=== PATIENT | female | born 1965 | race Caucasian/White ===

== ENCOUNTER 2022-07-22 14:11 | Emergency (ER) | payer MEDICAID, SELFPAY ==
--- NOTE | ~2022-07-22 | XR_ITS ---
XR chest 2V DATE: 07/22/2022 14:39 INDICATION: Cough, congestion and shortness of breath for one month. Smoker. TECHNIQUE: 2 views COMPARISON: 05/27/2014 PA and lateral chest FINDINGS: Bilateral hyperinflation. No pulmonary infiltrate or consolidation, pleural effusion or pul monary vascular congestion or pneumothorax. No hilar or mediastinal enlargement. Normal heart size. Status post cholecystectomy. Included skeletal structures are unremarkable. IMPRESSION: Bilateral hyperinflation; otherwise no active cardiac pulmonary disease Status post cholecystectomy Reviewed, dictated and finalized at location B. 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
[2022-07-22 14:21] VITALS: BP 107/87; PULSE 84; RESP 20; TEMP 36.4; O2SAT 100
--- NOTE | 2022-07-22 14:23 | ED.URI ---
HPI - URI/Sore Throat General Chief Complaint: Upper Respiratory Infection Stated Complaint: headache, coughing, Time Seen by Provider: 07/22/22 14:23 Source: patient, RN notes reviewed and old records reviewed Mode of arrival: ambulatory Limitations: no limitations History of Present Illness HPI Narrative: 57-year-old female who is a smoker presents to the [facility] with cough, headache and fatigue since getting over COVID 4-6 weeks ago. States she is not getting any better. No treatment prior to arrival except for the inhaler she was prescribed when she had COVID 1st week in June. Denies any fevers. Related Data Home Medications Medication Instructions Recorded Confirmed bupropion HCl 150 mg 24 hr tablet, 150 mg PO DIRECTED 07/22/22 07/22/22 extended release buspirone 5 mg tablet 5 mg PO DAILY 07/22/22 07/22/22 paroxetine HCl 10 mg tablet 10 mg PO DAILY 07/22/22 07/22/22 Allergies Allergy/AdvReac Type Severity Reaction Status Date / Time azithromycin Allergy Unknown Other Verified 07/22/22 14:36 SINGAPOREAN GINSENG Allergy Unknown Other Uncoded 07/22/22 14:36 GUARANA SEED EXTRACT Allergy Unknown Other Uncoded 07/22/22 14:36 PORTUGUESE GINSENG Allergy Unknown Other Uncoded 07/22/22 14:36 SIBERIAN GINSENG ROOT EXTRACT Allergy Unknown Other Uncoded 07/22/22 14:36 Review of Systems Review of Systems: All systems reviewed & are unremarkable except as noted in HPI and below Constitutional: Constitutional: Reports no additional constitutional complaints, Denies chills and Denies fever(s) Eyes: Eyes: Reports no additional eye complaints ENT: Reports system reviewed and no additional complaints, except as documented Cardiovascular: Cardiovascular: Reports no additional cardiovascular complaints Respiratory: Respiratory: Reports as per HPI, Reports cough and Denies dyspnea Gastrointestinal: Gastrointestinal: Reports no additional gastrointestinal complaints Musculoskeletal: Musculoskeletal: Reports no additional musculoskeletal complaints Integumentary/Breasts: Skin/Breast: Reports system reviewed and no additional complaints, except as docu Neurologic: Reports system reviewed and no additional complaints, except as documented Psychiatric: Psychiatric: Reports no additional psychiatric complaints Allergic/Immunologic: Allergic/Immunologic: Reports no additional allergic/immunologic complaints PMFSH Past Medical History Medical History Allergies COPD (chronic obstructive pulmonary disease) Headache Hypotension Irritable bowel syndrome (IBS) Migraine Surgical History Surgical History (Updated 07/22/22 @ 14:51 by Suellen Rizzo APRN) Hx of cholecystectomy Family History Family History Father Alcoholism Mother Hypertension Grandparent Alcoholism Hypertension Social History Social History Smoking status: Current every day smoker Tobacco type: cigarettes Alcohol intake: never Substance use: never Comments At the time of my signature, I reviewed and agree with the nursing past medical, surgical, social, and family history. There is no relevant family history pertinent to the patient complaint. Exam Const: General: healthy appearing, comfortable, no acute distress, well developed, alert and well nourished Nutritional Appearance: well nourished Orientation/consciousness: patient oriented x3 Limitations: no limitations HENMT: Head: normal to inspection Ears: external ears normal, TM's normal bilaterally and EAC's normal Face/Nose/Sinus: Normal external nose present and Nasal discharge present clear bilateral Face and sinus: normal facial exam Mouth: Yes Normal oral and palatal mucosa present, Yes lip normal and Yes moist mucous membranes Throat: posterior oropharynx normal and uvula midline Eyes: General: appearance n
== END 2022-07-22 15:00 | disposition home or self-care (01) ==
PROVIDERS: Emergency Provider Nurse Practitioner
DX: J42 Unspecified chronic bronchitis (principal); J01.40 Acute pansinusitis, unspecified; F17.200 Nicotine dependence, unspecified, uncomplicated
CPT/HCPCS: 71046; 87804; 99213; G0463

== ENCOUNTER 2022-12-19 15:05 | Day surgery (SDC) | payer OTHER, SELFPAY ==
[2022-12-19] VITALS (17 sets, daily range): BP systolic 86–126; BP diastolic 42–84; PULSE 60–87; RESP 15–20; TEMP 36.4–36.6; O2SAT 93–100
--- NOTE | ~2022-12-19 | CT_ITS ---
EXAMINATION: CT abdomen pelvis w con DATE: 12/19/2022 16:09 INDICATION: Right lower quadrant abdominal pain and tenderness TECHNIQUE: Computed tomography (CT) of the abdomen and pelvis was performed with 100 mL Omnipaque-350 intravenous contrast. Automated exposure control and iterative reconstruction technique were employe d. The dose-length product was 305.52 mGy-cm. COMPARISON: 10/06/2016 FINDINGS: Lung bases are clear. Heart size is normal. No pericardial or pleural effusion. Small sliding-type hi atal hernia. Focal hepatic steatosis at the falciform ligament. Cholecystectomy clips at the gallblad gabriela fossa and likely dropped clip in the left hemipelvis. Spleen, pancreas, bilateral adrenal glands and kidneys are normal. Dilated fluid-filled appendix which measures up to 12 mm maximal diameter wit h mucosal hyperemia and mild surrounding inflammatory stranding consistent with acute appendicitis. B owels are otherwise unremarkable with no obstruction. Bladder, uterus and bilateral adnexa are unrema rkable. No abscess or free intraperitoneal gas or fluid. No pathologically enlarged abdominal or pelv ic lymphadenopathy. Mild thoracolumbar dextrocurvature. 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 IMPRESSION: 1. Acute appendicitis. Dr. Melton discussed these findings with Dr. Dr. Mendiola at 4:20 PM. Reviewed, dictated and finalized at location A.
--- NOTE | 2022-12-19 15:30 | ED.ABDPAIN ---
HPI - Abdominal Pain General Chief Complaint: Abdominal Pain Stated Complaint: abd pain Time Seen by Provider: 12/19/22 15:28 Source: patient and family History of Present Illness HPI narrative: 57 years old white female came to the emergency room with abdominal pain mainly right lower quadrant like labor pain. Associated with nausea and vomiting at least 6 times since last night. History of bilateral tubal ligation and gas and cholecystectomy. She denies any fever or chills. Last meal was last night. Related Data Home Medications Medication Instructions Recorded Confirmed bupropion HCl 150 mg 24 hr tablet, 150 mg PO DIRECTED 07/22/22 07/22/22 extended release buspirone 5 mg tablet 5 mg PO DAILY 07/22/22 07/22/22 paroxetine HCl 10 mg tablet 10 mg PO DAILY 07/22/22 07/22/22 Allergies Allergy/AdvReac Type Severity Reaction Status Date / Time azithromycin Allergy Unknown Other Verified 07/22/22 14:36 MALAWIAN GINSENG Allergy Unknown Other Uncoded 07/22/22 14:36 GUARANA SEED EXTRACT Allergy Unknown Other Uncoded 07/22/22 14:36 ROMANSH GINSENG Allergy Unknown Other Uncoded 07/22/22 14:36 SIBERIAN GINSENG ROOT EXTRACT Allergy Unknown Other Uncoded 07/22/22 14:36 Review of Systems Review of Systems: All systems reviewed & are unremarkable except as noted in HPI and below PMFSH Past Medical History Medical History Allergies COPD (chronic obstructive pulmonary disease) Headache Hypotension Irritable bowel syndrome (IBS) Migraine Surgical History Surgical History Hx of cholecystectomy Family History Family History Father Alcoholism Mother Hypertension Grandparent Alcoholism Hypertension Social History Social History Smoking status: Current every day smoker Tobacco type: cigarettes Alcohol intake: never Substance use: never Exam Narrative: General appearance: Well-developed, well-nourished Skin: Normal color Head: Normocephalic, nontraumatic Eyes: Clear conjunctiva ENT: Oropharynx normal, ears normal, nose normal Neck: Supple, nontender Chest and respiratory: Airway patent, no respiratory distress, no accessory muscle use Heart: Regular rate/rhythm Abdomen: Soft, diffuse tenderness mainly right lower quadrant with guarding, no organomegaly, quiet bowel sounds, Vascular: Normal peripheral pulses, normal capillary refill. 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 Patient was notified about the diagnosis of acute appendicitis and the plan for surgery tonight Date: 12/19/22 Time: 16:34 Consultations Consultation #1: Dr. Reis Date: 12/19/22 Time: 16:37 Vital Signs Vital signs: Vital Signs Temperature 36.6 C 12/19/22 15:14 Pulse Rate 87 12/19/22 15:14 Respiratory Rate 16 12/19/22 15:14 Blood Pressure 126/84 12/19/22 15:14 Pulse Oximetry 100 12/19/22 15:14 Oxygen Delivery Room Air 12/19/22 15:14 Temperature 36.6 C 12/19/22 15:14 Pulse Rate 81 12/19/22 15:18 Respiratory Rate 15 12/19/22 15:18 Blood Pressure 126/84 12/19/22 15:18 Pulse Oximetry 98 12/19/22 15:18 Oxygen Delivery Room Air 12/19/22 15:18 MDM - Abdominal Pain MDM Narrative Medical decision making narrative: Patient presents with diffuse abdominal
[2022-12-19 15:41] LABS: Basophils Percent Auto 0.2 % (0.2-1.2); Eosinophils Percent Auto 0.2 % (0-4.4); Hematocrit 42.3 % (37.0-47.0); Hemoglobin 13.8 g/dL (12.0-15.0); Immature Granulocyte Absolute 0.07 K/mm3 (0.00-0.031); Immature Granulocyte Percent A 0.4 % (0-0.5); Lymphocytes Absolute Auto 2.29 K/mm3 (0.9-3.2); Lymphocytes Percent Auto 14.2 % (18.3-44.2); Mean Corpuscular HGB Conc 32.6 g/dl (32-36); Mean Corpuscular Hemoglobin 29.9 pg (26-34); Mean Corpuscular Volume 91.6 fl (80-100); Mean Platelet Volume 9.4 fl (7.4-10.4); Monocytes Absolute Auto 0.9 K/mm3 (0.1-0.6); Monocytes Percent Auto 5.4 % (2.6-8.5); Neutrophils Absolute Auto 12.8 K/mm3 (1.3-6.7); Neutrophils Percent Auto 79.6 % (45.5-73.1); Platelet Count Result 249 k/mm3 (150-375); Red Blood Count 4.62 M/mm3 (4.2-5.4); White Blood Count 16.1 K/mm3 (4.5-10.0)
[2022-12-19 15:45] LABS: Appearance Urine Cloudy (Clear); Bacteria Urine None Seen /hpf; Bilirubin Urine Negative (Negative); Blood Urine 3+ (Negative); Color Urine Yellow (Yellow); Glucose Urine UA Negative (Negative); Ketones Urine 1+ mg/dL (Negative); Leukocyte Esterase Ur Negative LEU/UL (Negative); Nitrate Urine Negative (Negative); Non Pathogenic Casts 0-2; Protein Urine 1+ mg/dL (Negative); RBC Urine >100 /hpf (0-2); Specific Grav Ur 1.014 (1.001-1.035); Squamous Epithelial Cell Urine None seen /hpf (Few); Urobilinogen Urine 0.2 mg/dL (<2.0); WBC Urine 0-5 /hpf; pH Urine 7.5 (5.0-9.0)
[2022-12-19 15:51] LABS: Alanine Aminotransferase 18 U/L (6-35); Albumin Level 4.8 g/dL (3.5-5.1); Alkaline Phosphatase 100 U/L (38-126); Anion Gap 8 mmol/L (8-16); Aspartate Amino Transferase 21 U/L (14-36); Bilirubin,Total 0.8 mg/dL (0.2-1.3); Blood Urea Nitrogen 13 mg/dL (7-17); Calcium 9.4 mg/dL (8.4-10.2); Carbon Dioxide 30 mmol/L (22-30); Chloride 99 mmol/L (98-107); Estimated CRCL calculation 59 ml/min; Estimated Glomerular Filt Rate > 60; Glucose 120 mg/dL (65-110); Lipase 39 U/L (23-300); Potassium 3.9 mmol/L (3.4-5.0); Sodium 137 mmol/L (137-145)
[2022-12-19] MEDS: SODIUM CHLORIDE 0.9% IV 1,000 ML 999 ML IV CONT (15:53)
[2022-12-19] MEDS: MORPHINE SULFATE (*CRX) 4 MG/ML INJ IV PUSH (15:54)
[2022-12-19] MEDS: ONDANSETRON INJ 4 MG/2 ML VIAL IV PUSH (15:54)
[2022-12-19 16:02] LABS: Add Urine Microscopic? YES
[2022-12-19] MEDS: PIPERACILLN/TAZ 3.375GM/NS50ML 3.375 GM/50 ML BAG IVPB (16:37)
[2022-12-19] MEDS: LACTATED RINGERS 1,000 ML 30 ML IV CONT ×2 (17:11→19:29)
--- NOTE | 2022-12-19 17:28 | PC.NURSE ---
Last ordered meds not given due to pt being taken to OR.
--- NOTE | 2022-12-19 17:48 | WPDANESEPPF ---
Anes - Initial Pre Proc Eval Procedure: Operation Date: 12/19/22 18:00 Proposed Procedures p Laparoscopic Appendectomy - Shira Reis MD Date/Time: 12/19/22 17:48 Surgeon: Shira Reis MD Pre Op Diagnosis: abd pain Patient Data Age: 57 Gender: F Height: 1.63 m Weight: 66 kg Last Vital Signs Temp 36.4 C 12/19/22 17:11 Pulse 76 12/19/22 17:11 Resp 20 12/19/22 17:11 BP 124/50 L 12/19/22 17:11 Pulse Ox 98 12/19/22 17:11 O2 Del Method Room Air 12/19/22 17:11 Allergies Allergy/AdvReac Type Severity Reaction Status Date / Time azithromycin Allergy Unknown Other Verified 07/22/22 14:36 LIBYAN GINSENG Allergy Unknown Other Uncoded 07/22/22 14:36 GUARANA SEED EXTRACT Allergy Unknown Other Uncoded 07/22/22 14:36 ENGLISH GINSENG Allergy Unknown Other Uncoded 07/22/22 14:36 SIBERIAN GINSENG ROOT EXTRACT Allergy Unknown Other Uncoded 07/22/22 14:36 Home Medications Medication Instructions Recorded Confirmed Type bupropion HCl 150 mg 24 hr tablet, 150 mg PO DIRECTED 07/22/22 07/22/22 History extended release buspirone 5 mg tablet 5 mg PO DAILY 07/22/22 07/22/22 History doxycycline monohydrate 100 mg 100 mg PO BID #14 tabs 07/22/22 Rx tablet methylprednisolone 4 mg tablets in See Rx Instructions PO .COMPLEX 07/22/22 Rx a dose pack ([employer] Productsrol (Ke)) #21 ea paroxetine HCl 10 mg tablet 10 mg PO DAILY 07/22/22 07/22/22 History Laboratory Tests 12/19/22 12/19/22 12/19/22 15:35 15:35 15:35 WBC 16.1 K/mm3 H K/mm3 (4.5-10.0) RBC 4.62 M/mm3 M/mm3 (4.2-5.4) Hgb 13.8 g/dL g/dL (12.0-15.0) Hct 42.3 % % (37.0-47.0) MCV 91.6 fl fl (80-100) MCH 29.9 pg pg (26-34) MCHC 32.6 g/dl g/dl (32-36) RDW 14.0 % % (11.5-14.5) Plt Count 249 k/mm3 k/mm3 (150-375) MPV 9.4 fl fl (7.4-10.4) Immature Gran % (Auto) 0.4 % % (0-0.5) Neut % (Auto) 79.6 % H % (45.5-73.1) Lymph % (Auto) 14.2 % L % (18.3-44.2) Allen % (Auto) 5.4 % % (2.6-8.5) Eos % (Auto) 0.2 % % (0-4.4) Baso % (Auto) 0.2 % % (0.2-1.2) Lymph # (Auto) 2.29 K/mm3 K/mm3 (0.9-3.2) Allen # (Auto) 0.9 K/mm3 H K/mm3 (0.1-0.6) Eos # (Auto) 0.0 K/mm3 K/mm3 (0-0.3) Baso # (Auto) 0.0 K/mm3 K/mm3 (0.0-0.1) Abs Immat Gran (auto) 0.07 K/mm3 H K/mm3 (0.00-0.031) Absolute Neuts (auto) 12.8 K/mm3 H K/mm3 (1.3-6.7) Absolute Nucleated RBC 0.0 K/mm3 K/mm3 (0.0-0.012) Nucleated RBC % 0.0 % % (0.0-0.2) Sodium 137 mmol/L mmol/L (137-145) Potassium 3.9 mmol/L mmol/L (3.4-5.0) Chloride 99 mmol/L mmol/L (98-107) Carbon Dioxide 30 mmol/L mmol/L (22-30) Anion Gap 8 mmol/L mmol/L (8-16) BUN 13 mg/dL mg/dL (7-17) Creatinine 0.80 mg/dL mg/dL (0.7-1.0) Estim Creat Clear Calc 59 ml/min ml/min Estimated GFR > 60 (59 - ) Glucose 120 mg/dL H mg/dL (65-110) Calcium 9.4 mg/dL mg/dL (8.4-10.2) Total Bilirubin 0.8 mg/dL mg/dL (0.2-1.3) AST 21 U/L U/L (14-36) ALT 18 U/L U/L (6-35) Alkaline Phosphatase 100 U/L U/L (38-126) Total Protein 8.0 g/dL g/dL (6.3-8.2) Albumin 4.8 g/dL g/dL (3.5-5.1) Lipase 39 U/L U/L (23-300) Urine Color Yellow (Yellow) Urine Appearance Cloudy H (Clear) Urine pH 7.5 (5.0-9.0) Ur Specific [place] 1.014 (1.001-1.035) Urine Protein 1+ mg/dL H mg/dL (Negative) Urine Glucose (UA) Negative mg/dL mg/dL (Negative) Urine Ketones 1+ mg/dL H mg/dL (Negative) Ur Blood (Man) 3+ H (Negative) Urine Nitrate Negative (Negative) Urine Bilirubin Negative (Ne
--- NOTE | 2022-12-19 18:30 | PM.IMHP ---
H&P: HPI History of Present Illness Date/Time: 12/19/22 18:30 Chief Complaint: acute appendicitis Narrative: 57 y/o F presenting to ED c/o 1 d h/o sudden onset RLQ pain. Pt reports pain started acutely overnight and has been constant, severe. Pt reports pain is sharp, stabbing. Pt reports assoc nausea, anorexia. Pt denies previous similar episodes. Review of Systems Constitutional: Constitutional: Reports as per HPI, Reports anorexia, Denies chills, Denies fatigue, Denies fever(s), Denies lethargy, Reports poor appetite, Denies weakness, Denies weight gain and Denies weight loss Eyes: Eyes: Reports no additional eye complaints ENT: Reports system reviewed and no additional complaints, except as documented Cardiovascular: Cardiovascular: Reports no additional cardiovascular complaints Respiratory: Respiratory: Reports no additional respiratory complaints Gastrointestinal: Gastrointestinal: Reports as per HPI, Reports abdominal pain, Reports GI cramping and Reports nausea Genitourinary: Genitourinary: Reports no additional female genitourinary complaints Musculoskeletal: Musculoskeletal: Reports no additional musculoskeletal complaints Integumentary/Breasts: Skin/Breast: Reports system reviewed and no additional complaints, except as docu Neurologic: Reports system reviewed and no additional complaints, except as documented Psychiatric: Psychiatric: Reports no additional psychiatric complaints Endocrine: Endocrine: Reports no additional endocrine complaints Hematologic/Lymphatic: Hematologic/Lymphatic: Reports no additional hematologic/lymphatic complaints Allergic/Immunologic: Allergic/Immunologic: Reports no additional allergic/immunologic complaints PMFSH Past Medical History Medical History Allergies COPD (chronic obstructive pulmonary disease) Headache Hypotension Irritable bowel syndrome (IBS) Migraine Surgical History Surgical History Hx of cholecystectomy Family History Family History Father Alcoholism Mother Hypertension Grandparent Alcoholism Hypertension Social History Social History Smoking status: Current every day smoker Tobacco type: cigarettes Alcohol intake: never Substance use: never Meds Home Medications and Allergies Home Medications Medication Instructions Recorded Confirmed Type bupropion HCl 150 mg 24 hr tablet, 150 mg PO DIRECTED 07/22/22 07/22/22 History extended release buspirone 5 mg tablet 5 mg PO DAILY 07/22/22 07/22/22 History doxycycline monohydrate 100 mg 100 mg PO BID #14 tabs 07/22/22 Rx tablet methylprednisolone 4 mg tablets in See Rx Instructions PO .COMPLEX 07/22/22 Rx a dose pack (Medrol (Ke)) #21 ea paroxetine HCl 10 mg tablet 10 mg PO DAILY 07/22/22 07/22/22 History Allergies Allergy/AdvReac Type Severity Reaction Status Date / Time azithromycin Allergy Unknown Other Verified 07/22/22 14:36 BURKINAN GINSENG Allergy Unknown Other Uncoded 07/22/22 14:36 GUARANA SEED EXTRACT Allergy Unknown Other Uncoded 07/22/22 14:36 SLOVENIAN GINSENG Allergy Unknown Other Uncoded 07/22/22 14:36 SIBERIAN GINSENG ROOT EXTRACT Allergy Unknown Other Uncoded 07/22/22 14:36 Vital Signs Vital Signs - 24 hr 12/19/22 15:14 12/19/22 15:18 12/19/22 15:12 Temperature 36.6 C Pulse Rate 87 81 Respiratory Rate 16 15 Blood Pressure 126/84 126/84 126/84 Pulse Oximetry 100 98 98 Oxygen Delivery Room Air Room Air 12/19/22 15:13 12/19/22 15:16 12/19/22 16:40 Temperature Pulse Rate 64 Respiratory Rate 16 Blood Pressure 99/60 L Pulse Oximetry 98 93 99 Oxygen Delivery 12/19/22 16:59 12/19/22 17:11 Temperature 36.4 C Pulse Rate 60 76 Respiratory Rate 16 20 Blood Pressure 99/60 L 124/50 L Pulse Oximetr
--- NOTE | 2022-12-19 18:35 | WPDHPUPDATE1 ---
History and Physical Update Update Date/Time: 12/19/22 18:35 History and Physical has been reviewed, including an updated exam of the patient. There are NO changes in the patient's condition. Risks, benefits, and alternatives have been discussed and questions answered. Patient agrees to proceed with procedure.
[2022-12-19] MEDS: BUPIVACAINE/EPINEPHRINE 0.5% 50 ML VIAL 30 ML INFILTRATE (19:21)
--- NOTE | 2022-12-19 19:22 | W.PM.PROC2 ---
Procedure Note - Detailed Date of Procedure 12/19/22 Pre-op Diagnosis acute appendicitis Post-op Diagnosis Same Procedure Performed laparoscopic appendectomy Surgeon Shira Reis MD Anesthesia General Indications 57 y/o F presenting to ED c severe RLQ abd pain, workup and imaging c/w acute appendicitis Findings acute appendicitis no evidence of perforation Description of Procedure The patient was taken to the operating room and placed in the supine position. After adequate induction of general anesthesia, the patient was prepped and draped in the normal sterile fashion. A time-out was then done to verify the patient's identity, as well as the procedure being performed. I began by making a 5 mm incision in the infraumbilical region, through this a Veress needle was placed in the peritoneal cavity. CO2 gas was then insufflated and after adequate pneumoperitoneum was achieved the Veress needle was removed. Then placed a 5 mm Optiview trocar under direct visualization into the peritoneal cavity. I then insufflated through this trocar site and the endoscope was placed into the trocar. Under direct visualization, placed 2 further 5 mm suprapubic port as well as an additional 12 mm port in the left lower abdomen. At this point identified the cecum, I retracted the cecum both medially and superiorly allowing me to expose the appendix. The appendix was noted to be very dilated and inflamed. The appendix was noted to be very adherent to the right lateral sidewall as well as the ileum. I was able to bluntly dissect the appendix from these adhesions. I then was able to locate the base of the appendix with the cecum. I created a window with the [place] dissector between the appendix itself and the mesoappendix. I then transected the mesoappendix with a white vascular staple load. The Endo-DONALD was then reloaded with a blue staple load and I transected the base of the appendix. There was some bleeding noted at the vascular staple line. Control was attempted with the cautery, however, the area continued to ooze. A second vascular staple load was fired and the bleeding was noted to be controlled. Once the specimen was completely detached, an endo-pouch was placed into the 12 mm port site and the specimen was removed through the endo-pouch. The appendiceal specimen will be sent to pathology for further review. I then copiously irrigated the right lower quadrant. Hemostasis was noted at both staple lines no other pathology was seen in this area. I then moved the camera to the suprapubic port to check our its port of entry. No iatrogenic injury or other pathology was noted in the upper abdomen. I then closed the 12 mm port site with a Gray code and 0 Vicryl suture under direct visualization. At this point, the abdomen was desufflated and all ports were removed. All port sites were closed with 4 Monocryl subcuticular suture. Dermabond was placed on all wounds. The patient tolerated the procedure well and was extubated in the operating room postop. He will be sent to the recovery room in stable condition. Estimated Blood Loss 50 Drains No Packing No Pathology Yes Complications No immediate complications Condition Stable Disposition PACU [facility] Billing Surgery - Charge Forward: Surgery Billing
[2022-12-19] MEDS: fentaNYL CITRATE INJ (*CRX) 100 MCG/2 ML VIAL 25 MCG IV PUSH ×3 (19:58→20:11)
--- NOTE | 2022-12-19 20:36 | SUR.PHASEI ---
Addendum entered by Tracey Velázquez RN 12/19/22 20:39: will give 500ml iv bolus of LR that is already infusing. Original Note: 2030: Kira PIERRE notified of patient having continued hypotension. New orders received.
[2022-12-19] MEDS: oxyCODONE HCL (*CRX) 5 MG TAB IR PO (20:58)
== END 2022-12-19 21:55 | disposition home or self-care (01) ==
LOC: ANHED 16:38 → ANHSURGERY 17:01
PROVIDERS: Emergency Medicine; Emergency Provider Emergency Medicine; Visit Provider Surgery
PROC: 0DTJ4ZZ Resection of Appendix, Percutaneous Endoscopic Approach (ICD-10-PCS; CPT 44970; principal; 2022-12-19 18:00)
DX: K35.80 Unspecified acute appendicitis (principal); F17.210 Nicotine dependence, cigarettes, uncomplicated
CPT/HCPCS: 44970; 36415; 74177; 80053; 81001; 83690; 85025; 88304; A9270; J0330; J2250; J2270; J2405; J2543; J2704; J3010; J7030; J7120; Q9967

== ENCOUNTER 2023-04-16 13:05 | Emergency (ER) | payer OTHER, SELFPAY ==
--- NOTE | 2023-04-16 13:07 | ED.BACK ---
HPI - Back Pain/Injury General Chief Complaint: Back Pain/Injury Stated Complaint: back pain Time Seen by Provider: 04/16/23 13:35 Source: patient and RN notes reviewed Mode of arrival: ambulatory Limitations: no limitations History of Present Illness HPI Narrative: 58-year-old female presents with concern for acute low back pain bilaterally. Reports 40 minutes prior to arrival she was at the grocery store pushing a shopping cart when she slipped causing her legs to spread apart and having immediate back pain. She reports pain is worse when she is sitting or changing positions, it is best when she is standing. She denies loss of bowel or bladder function, perianal anesthesia, weakness in any extremity. She reports occasional pain shooting down her right leg MD elicited complaint: back pain Related Data Home Medications Medication Instructions Recorded Confirmed hydroxyzine HCl 25 mg tablet mg 04/16/23 midodrine 5 mg tablet mg 04/16/23 olanzapine 2.5 mg tablet mg 04/16/23 omeprazole 40 mg capsule,delayed mg 04/16/23 release Allergies Allergy/AdvReac Type Severity Reaction Status Date / Time azithromycin Allergy Unknown Other Verified 04/16/23 13:25 SLOVENIAN GINSENG Allergy Unknown Other Uncoded 04/16/23 13:25 GUARANA SEED EXTRACT Allergy Unknown Other Uncoded 04/16/23 13:25 SERBIAN GINSENG Allergy Unknown Other Uncoded 04/16/23 13:25 SIBERIAN GINSENG ROOT EXTRACT Allergy Unknown Other Uncoded 04/16/23 13:25 Review of Systems Review of Systems: CONSTITUTIONAL: Denies malaise, chills, sweats, or fever. CARDIOVASCULAR: Denies chest pain, palpitations, or edema. RESPIRATORY: Denies cough or dyspnea. GASTROINTESTINAL: Denies abdominal pain, nausea, vomiting, diarrhea, loss of bowel function GENITOURINARY: Denies dysuria, hematuria, frequency, loss of bladder function. SKIN: Denies rash or itching. MUSCULOSKELETAL: Reports low back pain NEUROLOGIC: Denies numbness, weakness, or headache. All systems reviewed & are unremarkable except as noted in HPI and below PMFSH Past Medical History Medical History Allergies COPD (chronic obstructive pulmonary disease) Headache Hypotension Irritable bowel syndrome (IBS) Migraine Surgical History Surgical History Hx of cholecystectomy Family History Family History Father Alcoholism Mother Hypertension Grandparent Alcoholism Hypertension Social History Social History Smoking status: Current every day smoker Tobacco type: cigarettes Alcohol intake: never Substance use: never Comments At time of signature, agree with nursing past medical, surgical, social and family history. There is no relevant family history pertinent to the presenting complaint Exam Narrative: GENERAL: Well-appearing, well-nourished, and in no acute distress. HEAD: Normocephalic, atraumatic. EYES: PERRLA and EOMI. NECK: Supple. No lymphadenopathy. CHEST: Clear to auscultation. No respiratory distress. HEART: Regular rate and rhythm. Distal pulses palpable and equal, cap refill <3 seconds ABDOMEN: Soft, nondistended, normal active bowel sounds, no palpable or pulsatile masses. Right lower quadrant tenderness MUSCULOSKELETAL: Normal range of motion and strength in all extremities; 5/5 strength with hip flexion and extension, dorsiflexion and extension, knee flexion and extension, plantar flexion and extension. Normal sensation in dermatomal distributions with sensitivity to light touch and pain. Low midline back tenderness to palpation. Right paraspinal tenderness. Transfers from sitting to standing. SKIN: Warm, dry, no rash. No ecchymosis, erythema, open wounds to back. NEURO: No focal deficits. Alert and oriented x3. Reflexes intact. Normal gait. PSYCH: Normal moo
[2023-04-16 13:18] VITALS: BP 135/65; PULSE 89; RESP 16; TEMP 36.2; O2SAT 99
== END 2023-04-16 13:50 | disposition home or self-care (01) ==
PROVIDERS: Emergency Provider Nurse Practitioner; PCP Internal Medicine
DX: M54.50 Low back pain, unspecified (principal); F17.210 Nicotine dependence, cigarettes, uncomplicated; J44.9 Chronic obstructive pulmonary disease, unspecified
CPT/HCPCS: 99213; G0463

== ENCOUNTER 2023-04-21 10:10 | Outpatient (CLI) | payer OTHER, SELFPAY ==
--- NOTE | ~2023-04-21 | XR_ITS ---
EXAMINATION: XR lumbar spine 2-3V DATE: 04/21/2023 10:39 INDICATION: Low back pain TECHNIQUE: Anteroposterior and lateral views of the lumbar spine, and cone-down lateral view of the l umbosacral junction were obtained. COMPARISON: 02/19/2010 FINDINGS: There are 2 mm of anterolisthesis of L4 on L5. The vertebral body heights an intervertebral disc spaces are maintained. There is no fracture. Small degenerative osteophytes project from the an terior endplates of multiple vertebral bodies. There is mild facet joint osteoarthritis of the lower lumbar spine. Surgical clips in the right upper quadrant are likely from prior cholecystectomy. A mod erate volume of colonic stool is present. IMPRESSION: 1. Mild lumbar spondylosis without acute findings. Reviewed, dictated and finalized at location B.
--- NOTE | ~2023-04-21 | XR_ITS ---
EXAMINATION: XR foot RT min 3V DATE: 04/21/2023 10:39 INDICATION: Right foot pain TECHNIQUE: Dorsoplantar, lateral, and 2 oblique views of the right foot were obtained. COMPARISON: None. FINDINGS: No fracture, dislocation, or subluxation. The bones, soft tissues, and joint spaces are nor mal. IMPRESSION: 1. No acute osseous abnormality. Reviewed, dictated and finalized at location B.
--- NOTE | ~2023-04-21 | XR_ITS ---
EXAMINATION: XR ankle RT min 3V INDICATION: Right foot pain TECHNIQUE: Four views of the right ankle are obtained COMPARISON: None available FINDINGS: No fracture, dislocation, or subluxation. The bones, soft tissues, and joint spaces are nor mal. IMPRESSION: 1. No acute osseous abnormality. Reviewed, dictated and finalized at location B.
== END 2023-04-21 10:11 | disposition home or self-care (01) ==
PROVIDERS: PCP Internal Medicine; Visit Provider Internal Medicine
DX: M79.671 Pain in right foot (principal); M54.50 Low back pain, unspecified; M47.896 Other spondylosis, lumbar region
CPT/HCPCS: 72100; 73610; 73630

== ENCOUNTER 2023-06-15 11:31 | Emergency (ER) | payer OTHER, SELFPAY ==
[2023-06-15 11:44] VITALS: BP 127/89; PULSE 93; RESP 18; TEMP 37; O2SAT 98
--- NOTE | 2023-06-15 13:19 | ED.UPPEXIN ---
HPI - Extremity Injury (Upper) General Chief Complaint: Extremity Injury, Upper Stated Complaint: R AXILLA PAIN S/P FALL ONTO CHAIRBACK Time Seen by Provider: 06/15/23 12:05 Source: patient and RN notes reviewed Mode of arrival: ambulatory Limitations: no limitations History of Present Illness HPI narrative: THis is a 58 year old female who presents for evaluation of right axilla pain. She reports last week she accidentally fell hitting her right axilla and breast on a high chair. She reports she was evaluated at an Urgent care 5 days ago for her pain. She reports having xray of right ribs and axilla and she was told no bony injury. She reports she is having worsening pain that is not improving with tylenol. She reports heat does help with her pain. She describes pain as spasms. She does not take any blood thinning medication. She denies significant shortness of breath. Related Data Home Medications Medication Instructions Recorded Confirmed hydroxyzine HCl 25 mg tablet mg 04/16/23 midodrine 5 mg tablet mg 04/16/23 olanzapine 2.5 mg tablet mg 04/16/23 omeprazole 40 mg capsule,delayed mg 04/16/23 release Allergies Allergy/AdvReac Type Severity Reaction Status Date / Time azithromycin Allergy Unknown Other Verified 04/16/23 13:25 CAMEROONIAN GINSENG Allergy Unknown Other Uncoded 04/16/23 13:25 GUARANA SEED EXTRACT Allergy Unknown Other Uncoded 04/16/23 13:25 KISWAHILI GINSENG Allergy Unknown Other Uncoded 04/16/23 13:25 SIBERIAN GINSENG ROOT EXTRACT Allergy Unknown Other Uncoded 04/16/23 13:25 Review of Systems Review of Systems: All systems reviewed & are unremarkable except as noted in HPI and below PMFSH Past Medical History Medical History Allergies COPD (chronic obstructive pulmonary disease) Headache Hypotension Irritable bowel syndrome (IBS) Migraine Surgical History Surgical History Hx of cholecystectomy Family History Family History Father Alcoholism Mother Hypertension Grandparent Alcoholism Hypertension Social History Social History Smoking status: Current every day smoker Tobacco type: cigarettes Alcohol intake: never Substance use: never Exam Const: General: no acute distress and alert Nutritional Appearance: well nourished Orientation/consciousness: patient oriented x3 Limitations: no limitations HENMT: Head: normal to inspection Face and sinus: normal facial exam Mouth: Yes Normal oral and palatal mucosa present, Yes lip normal and Yes moist mucous membranes Eyes: EOM: EOMs intact bilaterally Chest: Other: right lateral breast and chest wall tenderness, soft, no bruising, no erythema, no swelling. PAtient has full range of motion to right arm Resp: Effort & Inspection: normal respiratory effort Auscultation: clear to auscultation bilaterally Cardio: Rate: regular rate Rhythm: regular rhythm Skin: General skin exam: normal color Rashes: no rashes Wounds: no wounds Neuro: General: patient oriented x3, moves all extremities and CN's II-XI intact bilaterally Psych: Mental Status: mental status grossly normal Affect: normal affect Attitude: cooperative Course Reevaluation(s) Reevaluation #1: I Discussed with patient that she will be given flexeril and ibuprofen for pain. I offered imaging of her chest and axilla. She declines. She states she wants to go home and she will return if things do not improve. Her pain does seem to be more muscular. Date: 06/15/23 Time: 13:23 Vital Signs Vital signs: Vital Signs Temperature 98.6 F 06/15/23 11:44 Pulse Rate 93 06/15/23 11:44 Respiratory Rate 18 06/15/23 11:44 Blood Pressure 127/89 06/15/23 11:44 Pulse Oximetry 98 06/15/23 11:44 Oxygen Delivery Room Air 06/15/23 1
[2023-06-15] MEDS: CYCLOBENZAPRINE HCL 10 MG TABLET PO (13:20)
[2023-06-15] MEDS: IBUPROFEN 600 MG TABLET PO (13:20)
== END 2023-06-15 13:35 | disposition home or self-care (01) ==
PROVIDERS: Emergency Provider General Practice
DX: M79.621 Pain in right upper arm (principal); J44.9 Chronic obstructive pulmonary disease, unspecified; K58.9 Irritable bowel syndrome, unspecified; Z90.49 Acquired absence of other specified parts of digestive tract; W01.190A Fall on same level from slipping, tripping and stumbling with subsequent striking against furniture, initial encounter
CPT/HCPCS: 99283; A9270

== ENCOUNTER 2023-09-24 10:31 | Emergency (ER) | payer OTHER, SELFPAY ==
[2023-09-24 10:44] VITALS: BP 116/87; PULSE 98; RESP 20; TEMP 37.1; O2SAT 99
--- NOTE | 2023-09-24 11:39 | ED.GENADULT ---
HPI - General Adult General Chief complaint: Upper Respiratory Infection Stated complaint: Sinus/SOB Source: patient Mode of arrival: ambulatory Limitations: no limitations History of Present Illness HPI narrative: Patient presents for evaluation of respiratory symptoms since yesterday. Symptoms include nonproductive cough, shortness of breath pleuritic chest pain. She also his fevers and chills. Denies any nausea, vomiting, and diarrhea. No recent sick contacts to her knowledge. She has an underlying hx of COPD. She is current everyday smoker but has cut down on use. She has taken nyquil and mucinex for her symptoms. Related Data Home Medications Medication Instructions Recorded Confirmed albuterol sulfate 90 mcg/actuation inhalation 09/24/23 aerosol inhaler budesonide-formoterol HFA 80 inhalation 09/24/23 mcg-4.5 mcg/actuation aerosol inhaler (Symbicort) hydroxyzine HCl 10 mg tablet mg 09/24/23 hydroxyzine pamoate 25 mg capsule mg 09/24/23 olanzapine 5 mg tablet 5 mg PO DIRECTED 09/24/23 09/24/23 prazosin 2 mg capsule mg 09/24/23 Allergies Allergy/AdvReac Type Severity Reaction Status Date / Time azithromycin Allergy Unknown Other Verified 09/24/23 10:33 NAURUAN GINSENG Allergy Unknown Other Uncoded 09/24/23 10:33 GUARANA SEED EXTRACT Allergy Unknown Other Uncoded 09/24/23 10:33 AMHARIC GINSENG Allergy Unknown Other Uncoded 09/24/23 10:33 SIBERIAN GINSENG ROOT EXTRACT Allergy Unknown Other Uncoded 09/24/23 10:33 Review of Systems Review of Systems: CONSTITUTIONAL: reports fever and chills. EYES: Denies visual changes, redness, or discharge. ENT: Reports sinus congestion.Denies rhinorrhea, sore throat, or otalgia. CARDIOVASCULAR: Denies palpitations, or edema. RESPIRATORY: Reports nonproductive cough, shortness of breath and pleuritic chest pain. GASTROINTESTINAL: Denies abdominal pain, nausea, vomiting, or diarrhea. GENITOURINARY: Denies dysuria or hematuria. SKIN: Denies rash or itching. MUSCULOSKELETAL: Denies back pain, joint pain, or myalgia. NEUROLOGIC: Denies headache, numbness, dizziness, or weakness. PSYCHIATRIC: Denies anxiety or depression. [facility] Past Medical History Medical History Allergies COPD (chronic obstructive pulmonary disease) Headache Hypotension Irritable bowel syndrome (IBS) Migraine Surgical History Surgical History Hx of cholecystectomy Family History Family History Father Alcoholism Mother Hypertension Grandparent Alcoholism Hypertension Social History Social History Smoking status: Current every day smoker Tobacco type: cigarettes Alcohol intake: never Substance use: never Living arrangements: with family Gender identity (if verbalized by the patient): Female Spiritual care concerns: No Exam Narrative: GENERAL: Well-appearing, well-nourished, and in no acute distress. HEAD: Normocephalic, atraumatic. EYES: PERRLA and EOMI. ENT: Nares clear, no rhinorrhea or epistaxis. Mucous membranes moist. Oropharynx without tonsillar hypertrophy exudate or other lesions. Bilateral TMs pearly hinojosa nonbulging NECK: Supple. No adenopathy or masses. No carotid bruits or JVD CHEST: Clear to auscultation. No respiratory distress. No wheezes rales or rhonchi HEART: Regular rate and rhythm. No murmur heard. Normal peripheral pulses. ABDOMEN: Soft, nontender, nondistended, normal active bowel sounds. EXTREMITIES: Normal range of motion. No edema. SKIN: Warm, dry, no rash. NEURO: No focal deficits. Alert and oriented x3. PSYCH: Normal mood and affect. Course Course Emergency Course: This is a 58-year-old female who presented for evaluation of respiratory symptoms. Home COVID was ne
== END 2023-09-24 12:05 | disposition home or self-care (01) ==
PROVIDERS: Emergency Provider Nurse Practitioner
DX: J06.9 Acute upper respiratory infection, unspecified (principal); F17.210 Nicotine dependence, cigarettes, uncomplicated; J44.9 Chronic obstructive pulmonary disease, unspecified
CPT/HCPCS: 87081; 87804; 87880; 99213; G0463

== ENCOUNTER 2023-09-29 08:21 | Emergency (ER) | payer OTHER, SELFPAY ==
[2023-09-29] VITALS (9 sets, daily range): BP systolic 109–138; BP diastolic 54–114; PULSE 82–103; RESP 13–26; TEMP 36.9; O2SAT 94–98
--- NOTE | ~2023-09-29 | XR_ITS ---
EXAMINATION: XR chest 2V 09/29/2023 08:47 INDICATION: Shortness of breath and cough PROCEDURE: 2 view chest COMPARISON: Comparison to multiple prior studies sequentially, with oldest reviewed study dated 09/2012. FINDINGS: The lungs are clear. The cardiomediastinal silhouette is within normal limits. There are no pleural effusions. There is no pneumothorax suspected. IMPRESSION: 1: NO ACUTE CARDIOPULMONARY DISEASE. Reviewed, dictated and finalized at location B. [employer]
--- NOTE | ~2023-09-29 | CT_ITS ---
EXAMINATION: CTA chest PE protocol DATE: 09/29/2023 09:21 STRIP PICKER INDICATION: Shortness of breath. Anxiety. TECHNIQUE: Computed tomographic angiography (CTA) of the chest was performed with 100 mL Omnipaque-35 0 intravenous contrast. The dose-length product was 218.54 mGy-cm. Maximum intensity projection 3D-re constructions of the aorta and other arteries were constructed by the technologist on a separate work station. Automated exposure control and iterative reconstruction technique were employed. COMPARISON: None. FINDINGS: Study is technically adequate without evidence for pulmonary embolism. No significant pleur al or pericardial effusion. No thoracic lymphadenopathy. There is hiatal hernia. No evidence for aort ic aneurysm. The upper abdomen is unremarkable. There are cholecystectomy clips. No focal airspace co nsolidation. There is mild emphysema. No endobronchial lesions. No pneumothorax. There are calcified granulomas of the right upper lobe. IMPRESSION: 1. No acute cardiopulmonary disease. No evidence for pulmonary embolism. Reviewed, dictated and finalized at location B. P PICKER
--- NOTE | 2023-09-29 08:24 | ECG_ITS ---
Measurements Intervals [place] Rate: 74 P: 36 IA: 129 QRS: 73 QRSD: 88 T: 62 QT: 360 QTc: 400 Interpretive Statements SINUS RHYTHM BASELINE ARTIFACT- V1 NORMAL ECG NO PREVIOUS ECG AVAILABLE FOR COMPARISON Electronically Signed On 09-29-2023 8:57:55 IT APPLICATION DEVELOPMENT MANAGER by Tanvir Castillo D.O.
--- NOTE | 2023-09-29 08:25 | PC.NURSE ---
Pt arrived to triage loudly moaning, states she cannot breathe. Pt taken to room via wheelchair.
[2023-09-29 08:43] LABS: Basophils Percent Auto 0.2 % (0.2-1.2); Eosinophils Percent Auto 0.1 % (0-4.4); Hemoglobin 12.3 g/dL (12.0-15.0); Immature Granulocyte Absolute 0.03 K/mm3 (0.00-0.031); Immature Granulocyte Percent A 0.3 % (0-0.5); Lymphocytes Absolute Auto 1.65 K/mm3 (0.9-3.2); Lymphocytes Percent Auto 17.5 % (18.3-44.2); Mean Corpuscular HGB Conc 31.5 g/dl (32-36); Mean Corpuscular Hemoglobin 28.9 pg (26-34); Mean Corpuscular Volume 91.8 fl (80-100); Mean Platelet Volume 9.4 fl (7.4-10.4); Monocytes Absolute Auto 0.6 K/mm3 (0.1-0.6); Monocytes Percent Auto 6.1 % (2.6-8.5); Neutrophils Absolute Auto 7.1 K/mm3 (1.3-6.7); Neutrophils Percent Auto 75.8 % (45.5-73.1); Platelet Count Result 252 k/mm3 (150-375); Red Blood Count 4.25 M/mm3 (4.2-5.4); Red Cell Distribution Width 14.1 % (11.5-14.5); White Blood Count 9.4 K/mm3 (4.5-10.0)
[2023-09-29 08:55] LABS: Alanine Aminotransferase 29 U/L (6-35); Albumin Level 4.1 g/dL (3.5-5.1); Alkaline Phosphatase 105 U/L (38-126); Anion Gap 11 mmol/L (8-16); Aspartate Amino Transferase 41 U/L (14-36); Bilirubin,Total 0.4 mg/dL (0.2-1.3); Blood Urea Nitrogen 14 mg/dL (7-17); Calcium 8.8 mg/dL (8.4-10.2); Carbon Dioxide 25 mmol/L (22-30); Chloride 104 mmol/L (98-107); Estimated CRCL calculation 52 ml/min; Estimated Glomerular Filt Rate > 60; Glucose 160 mg/dL (65-110); Potassium 3.4 mmol/L (3.4-5.0); Sodium 140 mmol/L (137-145)
--- NOTE | 2023-09-29 08:57 | ED.SOB ---
HPI - SOB/Dyspnea General Chief Complaint: Shortness of Breath/Dyspnea Stated Complaint: I can't breathe Time Seen by Provider: 09/29/23 08:41 Source: patient Mode of arrival: ambulatory Limitations: no limitations History of Present Illness HPI Narrative: Suellen is a 58-year-old female patient presenting to the ER today with complaints of shortness of breath times 5-6 days. She was seen 5 days ago in the urgent care and diagnosed with viral URI/viral syndrome. She was placed on albuterol inhaler, 50 mg prednisone daily for 5 days, and Tessalon Perles. She reports that her symptoms have not improved. Currently rates her shortness breath a 7/10. History of COPD and anxiety. States that she was coughing up some yellow phlegm 1st 2 days but after that she has not been coughing up any sputum. She denies any fever or chills. Related Data Home Medications Medication Instructions Recorded Confirmed albuterol sulfate 90 mcg/actuation inhalation 09/24/23 aerosol inhaler budesonide-formoterol HFA 80 inhalation 09/24/23 mcg-4.5 mcg/actuation aerosol inhaler (Symbicort) hydroxyzine HCl 10 mg tablet mg 09/24/23 hydroxyzine pamoate 25 mg capsule mg 09/24/23 olanzapine 5 mg tablet 5 mg PO DIRECTED 09/24/23 09/24/23 prazosin 2 mg capsule mg 09/24/23 Allergies Allergy/AdvReac Type Severity Reaction Status Date / Time azithromycin Allergy Unknown Other Verified 09/29/23 08:32 GAMBIAN GINSENG Allergy Unknown Other Uncoded 09/29/23 08:32 GUARANA SEED EXTRACT Allergy Unknown Other Uncoded 09/29/23 08:32 KAZAKH GINSENG Allergy Unknown Other Uncoded 09/29/23 08:32 SIBERIAN GINSENG ROOT EXTRACT Allergy Unknown Other Uncoded 09/29/23 08:32 Review of Systems Review of Systems: Pertinent positives per HPI. Patient denies any fever, chills, rash, headache, visual changes, dizziness, runny nose, sore throat, chest pain, palpitations, nausea, vomiting, diarrhea, constipation, abdominal pain, or any urinary issues. PMFSH Past Medical History Medical History Allergies COPD (chronic obstructive pulmonary disease) Headache Hypotension Irritable bowel syndrome (IBS) Migraine Surgical History Surgical History Hx of cholecystectomy Family History Family History Father Alcoholism Mother Hypertension Grandparent Alcoholism Hypertension Social History Social History Smoking status: Current every day smoker Tobacco type: cigarettes Alcohol intake: never Substance use: never Living arrangements: with family Gender identity (if verbalized by the patient): Female Spiritual care concerns: No Comments At the time of my signature, I reviewed and agree with the nursing past medical, surgical, social, and family history. There is no relevant family history pertinent to the patient complaint. Exam Narrative: General: Well-developed, well nourished, anxious appearing Head: Normocephalic, atraumatic Eyes: Pupils equally round and reactive to light bilaterally, EOM intact, sclera and conjunctive clear, no discharge, lids normal Ears: TMs intact and clear, ear canals clear, no drainage, grossly hearing normal. Nose: Nares patent, no discharge, no inflammation, no sinus tenderness. Mouth: Oropharynx without lesions or masses, good dentition, MMM. Neck: Supple, trachea midline, no enlargement of anterior or posterior cervical nodes, no thyroid masses or goiter palpable. Cardio: Regular rate and rhythm, s1 and s2 normal, no murmur appreciated. Resp: Clear to auscultation bilaterally anteriorly and posteriorly, no rhonchi, rales, wheezing or rubs, SpO2 94-97% on room air, is able to speak in full sentences. Course Course Emergency Course: Portions of this yamila
[2023-09-29] MEDS: LORazepam INJ (*CRX) 2 MG/ML VIAL 1 MG IV PUSH (09:22)
[2023-09-29 09:45] LABS: INR 0.9
[2023-09-29 09:54] LABS: NT Pro B Type Natriuretic Pept 104 pg/mL (19.9-100); Troponin I < 0.012 ng/mL (0.000-0.034)
[2023-09-29 10:21] LABS: Influenza A QL RT-PCR Negative (Negative); Influenza B QL RT-PCR Positive (Negative); RSV RNA, RT-PCR Negative (Negative); SARS-CoV-2 RNA PCR Negative (Negative)
== END 2023-09-29 11:54 | disposition home or self-care (01) ==
PROVIDERS: Emergency Medicine; Emergency Provider Nurse Practitioner Family
DX: J10.1 Influenza due to other identified influenza virus with other respiratory manifestations (principal); R06.02 Shortness of breath; Z20.822 Contact with and (suspected) exposure to COVID-19; J44.9 Chronic obstructive pulmonary disease, unspecified; K58.9 Irritable bowel syndrome, unspecified; Z90.49 Acquired absence of other specified parts of digestive tract; F17.210 Nicotine dependence, cigarettes, uncomplicated
CPT/HCPCS: 36415; 71046; 71275; 80053; 83880; 84484; 85025; 85610; 85730; 87637; 93005; 96374; 99284; J2060; Q9967

== ENCOUNTER 2023-11-14 12:52 | Emergency (ER) | payer OTHER, SELFPAY ==
--- NOTE | ~2023-11-14 | XR_ITS ---
EXAMINATION: XR wrist LT min 3V DATE: 11/14/2023 13:20 INDICATION: Left wrist pain. Fall. TECHNIQUE: 4 views of left wrist were obtained. COMPARISON: None. FINDINGS: Bone alignment is normal. No fracture. There is mild osteoarthritis of first carpometacarpa l joint. IMPRESSION: 1. Mild osteoarthritis of first carpometacarpal joint. Reviewed, dictated and finalized at location A.
--- NOTE | ~2023-11-14 | XR_ITS ---
EXAMINATION: XR finger 3rd LT min 2V DATE: 11/14/2023 13:19 INDICATION: Left hand third digit pain and swelling. TECHNIQUE: 4 views of left hand third digit were obtained. COMPARISON: None. FINDINGS: There is an avulsion fracture of palmar base of third middle phalanx with 1 mm displacement . There is mild osteoarthritis of third proximal and distal interphalangeal joints. IMPRESSION: 1. Avulsion fracture of palmar base of third middle phalanx. Reviewed, dictated and finalized at location A.
[2023-11-14 12:55] VITALS: BP 134/77; PULSE 98; RESP 18; TEMP 36.6; O2SAT 100
[2023-11-14 12:57] VITALS: BP 116/77; PULSE 78; RESP 16; TEMP 36.4; O2SAT 100
--- NOTE | 2023-11-14 13:48 | ED.UPPEXIN ---
HPI - Extremity Injury (Upper) General Chief Complaint: Extremity Injury, Upper Stated Complaint: left middle finger injury last week Time Seen by Provider: 11/14/23 13:04 Source: patient Mode of arrival: ambulatory Limitations: no limitations History of Present Illness HPI narrative: Patient is a 58-year-old female who presents the ED with report of left 3rd digit pain. Patient reports she injured her left 3rd digit last week in which the finger bent backwards almost all the way to her hand. She states her finger appear dislocated at that time and she was able to reduce the finger herself. She has since had pain and swelling to her PIP joint of that digit. She has a finger splint at home that she has been wearing at times but states it does not fit appropriately. Denies numbness or tingling. Denies any other injuries. Related Data Home Medications Medication Instructions Recorded Confirmed albuterol sulfate 90 mcg/actuation inhalation 09/24/23 aerosol inhaler budesonide-formoterol HFA 80 inhalation 09/24/23 mcg-4.5 mcg/actuation aerosol inhaler (Symbicort) hydroxyzine HCl 10 mg tablet mg 09/24/23 hydroxyzine pamoate 25 mg capsule mg 09/24/23 olanzapine 5 mg tablet 5 mg PO DIRECTED 09/24/23 09/24/23 prazosin 2 mg capsule mg 09/24/23 Allergies Allergy/AdvReac Type Severity Reaction Status Date / Time azithromycin Allergy Unknown Other Verified 11/14/23 13:01 SLOVENIAN GINSENG Allergy Unknown Other Uncoded 11/14/23 13:01 GUARANA SEED EXTRACT Allergy Unknown Other Uncoded 11/14/23 13:01 OCCITAN GINSENG Allergy Unknown Other Uncoded 11/14/23 13:01 SIBERIAN GINSENG ROOT EXTRACT Allergy Unknown Other Uncoded 11/14/23 13:01 Review of Systems Review of Systems: CONSTITUTIONAL: Denies fever, chills, or sweats. MUSCULOSKELETAL: See HPI. NEUROLOGIC: Denies numbness, or weakness. All systems reviewed & are unremarkable except as noted in HPI and below PMFSH Past Medical History Medical History Allergies COPD (chronic obstructive pulmonary disease) Headache Hypotension Irritable bowel syndrome (IBS) Migraine Surgical History Surgical History Hx of cholecystectomy Family History Family History Father Alcoholism Mother Hypertension Grandparent Alcoholism Hypertension Social History Social History Smoking status: Current every day smoker Tobacco type: cigarettes Alcohol intake: never Substance use: never Living arrangements: with family Gender identity (if verbalized by the patient): Female Spiritual care concerns: No Exam Narrative: GENERAL: Well appearing, well-nourished, non-toxic, in no acute distress. HEAD: Normocephalic, atraumatic. RESPIRATORY: Airway patent, respirations nonlabored. CARDIOVASCULAR: Regular rate and rhythm. Radial pulses easily palpable. MUSCULOSKELETAL: Moves all extremities. No gross deformities. Mild swelling/ecchymosis/tenderness to palpation to PIP joint of left 3rd digit. Slight limited range of motion due to swelling. Sensation intact. Capillary refill intact to finger. SKIN: Warm, dry, normal color. NEURO: A&O X3. Speech clear. PSYCHIATRIC: Appropriate mood and affect. Normal interaction. Course Vital Signs Vital signs: Vital Signs Temperature 98 F 11/14/23 12:55 Pulse Rate 98 11/14/23 12:55 Respiratory Rate 18 11/14/23 12:55 Blood Pressure 134/77 11/14/23 12:55 Pulse Oximetry 100 11/14/23 12:55 Oxygen Delivery Room Air 11/14/23 12:55 Temperature 97.6 F 11/14/23 14:14 Pulse Rate 69 11/14/23 14:14 Respiratory Rate 14 11/14/23 14:14 Blood Pressure 119/66 11/14/23 14:14 Pulse Oximetry 100 11/14/23 14:14 Oxygen Delivery Room Air 11/14/23 12:57
[2023-11-14 14:14] VITALS: BP 119/66; PULSE 69; RESP 14; TEMP 36.4; O2SAT 100
== END 2023-11-14 14:16 | disposition home or self-care (01) ==
PROVIDERS: Emergency Provider Physician Assistant
DX: S62.623A Displaced fracture of middle phalanx of left middle finger, initial encounter for closed fracture (principal); J44.9 Chronic obstructive pulmonary disease, unspecified; K58.9 Irritable bowel syndrome, unspecified; F17.210 Nicotine dependence, cigarettes, uncomplicated; Z90.49 Acquired absence of other specified parts of digestive tract; M18.9 Osteoarthritis of first carpometacarpal joint, unspecified; X50.9XXA Other and unspecified overexertion or strenuous movements or postures, initial encounter
CPT/HCPCS: 29130; 73110; 73140; 99284

== ENCOUNTER 2024-10-17 13:02 | Emergency (ER) | payer OTHER, SELFPAY ==
[2024-10-17 13:18] VITALS: BP 110/63; PULSE 84; RESP 15; TEMP 36.2; O2SAT 99
--- NOTE | 2024-10-17 13:40 | ED.URI ---
HPI - URI/Sore Throat General Chief Complaint: Upper Respiratory Infection Stated Complaint: cough,runny nose,sores in mouth/throat Time Seen by Provider: 10/17/24 13:40 Source: patient, RN notes reviewed and old records reviewed Mode of arrival: ambulatory Limitations: no limitations History of Present Illness HPI Narrative: Patient presents accompanied by her . She is tearful E complaining of cough, runny nose, sore throat. She reports that she saw her primary care provider on October 07. At that visit she was diagnosed with thrush, and has prescriptions with her that she received that day. She got Augmentin, prednisone, nystatin and Jessica. She is not taking any of these medications as prescribed although she did become alert. She is tearful, complaints are vague. Has been does a lot of the speaking for her. She does report that when she went saw her primary care provider on October 07, she got a shot that was supposed to help her but did not. She does not know what the shot was Related Data Home Medications ?Medication ?Instructions ?Recorded ?Confirmed ?Last Taken ?Type albuterol sulfate 90 mcg/actuation 2 puff inhalation Q6-8H PRN 09/24/23 10/17/24 Unknown History aerosol inhaler shortness of breath or wheezing budesonide-formoterol HFA 80 2 puff inhalation Q12H 09/24/23 10/17/24 Unknown History mcg-4.5 mcg/actuation aerosol inhaler (Symbicort) hydroxyzine pamoate 25 mg capsule 25 mg PO Q8H PRN anxiety 09/24/23 10/17/24 Unknown History olanzapine 5 mg tablet 5 mg PO DIRECTED 09/24/23 10/17/24 Unknown History prazosin 2 mg capsule 2 mg PO QPM 09/24/23 10/17/24 Unknown History Allergies Allergy/AdvReac Type Severity Reaction Status Date / Time azithromycin Allergy Unknown Other Verified 10/17/24 13:05 IRANIAN GINSENG Allergy Unknown Other Uncoded 10/17/24 13:05 GUARANA SEED EXTRACT Allergy Unknown Other Uncoded 10/17/24 13:05 WELSH GINSENG Allergy Unknown Other Uncoded 10/17/24 13:05 SIBERIAN GINSENG ROOT EXTRACT Allergy Unknown Other Uncoded 10/17/24 13:05 Review of Systems Review of Systems: All systems reviewed & are unremarkable except as noted in HPI and below Constitutional: Constitutional: Reports no additional constitutional complaints ENT: Reports system reviewed and no additional complaints, except as documented and Reports as per HPI Cardiovascular: Cardiovascular: Reports no additional cardiovascular complaints Respiratory: Respiratory: Reports no additional respiratory complaints Gastrointestinal: Gastrointestinal: Reports no additional gastrointestinal complaints [facility] Past Medical History Medical History Irritable bowel syndrome (IBS) Hypotension Migraine Headache COPD (chronic obstructive pulmonary disease) Allergies Surgical History Surgical History Hx of cholecystectomy Family History Family History Father Alcoholism Mother Hypertension Grandparent Alcoholism Hypertension Social History Social History Smoking status: Current every day smoker Tobacco type: cigarettes Alcohol intake: never Substance use: never Living arrangements: with family Gender identity (if verbalized by the patient): Female Spiritual care concerns: No Comments At the time of my signature, I reviewed and agree with the nursing past medical, surgical, social, and family history. There is no relevant family history pertinent to the patient complaint. Exam Const: General: no acute distress, alert, awake and anxious Orientation/consciousness: oriented to person, oriented to place and oriented to time HENMT: Head: normal to inspection Ears: TM's normal bilaterally Mouth: Yes moist mucous membranes Throat: posterior oropharynx abnormal other (Small shallow sore base of tongue, left side) Resp: Effort & Inspection: normal respiratory effort and able to speak in complete sentences Auscultation: clear to auscultation bilaterally, no crackles, no rales, no rhonchi and no wheezes Cardio: Palpation: normal PMI Rate: regular rate Rhythm: regular rhythm Heart sounds: S1 normal heart sound present and S2 normal heart sound present Neuro: General: oriented to person, oriented to place and oriented to time Cranial nerves: Yes CN's II-XII intact bilaterally Psych: Appearance: grossly normal Thought process: Normal thought process present Insight: Good insight present (Psych) Judgement: Good judgement present (Psych) Course Course Level of Care: Express Care Visit Vital Signs Vital signs: Vital Signs Temperature 97.1 F L 10/17/24 13:18 Pulse Rate 84 10/17/24 13:18 Respiratory Rate 15 10/17/24 13:18 Blood Pressure 110/63 10/17/24 13:18 Pulse Oximetry 99 10/17/24 13:18 Oxygen Delivery Room Air 10/17/24 13:18 Temperature 97.1 F L 10/17/24 13:18 Pulse Rate 84 10/17/24 13:18 Respiratory Rate 15 10/17/24 13:18 Blood Pressure 110/63 10/17/24 13:18 Pulse Oximetry 99 10/17/24 13:18 Oxygen Delivery Room Air 10/17/24 13:18 Reviewed MDM - URI/Sore Throat MDM Narrative Medical decision making narrative: Negative COVID, negative flu, negative strep. Symptoms appear to be viral in origin. Long discussion had with patient regarding supportive care measures. She is advised to stop prednisone advised to stop Augmentin. She agrees to do so. She is advised follow with primary care provider. Emergency department for new or worse symptoms. Discharge instructions reviewed with patient, as well as provided in writing per nursing staff. The instructions also include specific and strict return/GO TO THE ER as well as f/u information. All questions have been answered, and the patient deny any further questions with discharge and discharge plan. Some parts of this dictation were generated by voice recognition software and may contain typographical and/or grammatical inaccuracies. Differential Diagnosis Differential diagnosis: Likely upper respiratory infection, otitis media and viral infection Medical Records Attestation: I reviewed the patient's medical records. Lab Data Attestation: I reviewed the patient's lab results. Discharge Plan Discharge Clinical Impression: Acute viral syndrome Patient Disposition: Home, Self-Care Condition: Stable Instructions: Antibiotic Form, Cold Symptoms (ED) Additional Instructions: Continue nystatin. Continue Jessica. Discontinue prednisone. Discontinue Augmentin. Follow-up with primary care provider without fail. Emergency department for new or worse symptoms Patient Language: Danish Prescriptions: No Action olanzapine 5 mg tablet 5 mg PO DIRECTED prazosin 2 mg capsule 2 mg PO QPM hydroxyzine pamoate 25 mg capsule 25 mg PO Q8H PRN (Reason: anxiety) albuterol sulfate 90 mcg/actuation HFA aerosol inhaler 2 puff INHALATION Q6-8H PRN (Reason: shortness of breath or wheezing) budesonide-formoterol [Symbicort] 80-4.5 mcg/actuation HFA aerosol inhaler 2 puff INHALATION Q12H prednisone 50 mg tablet 50 mg PO DAILY Qty: 5 0RF benzonatate 100 mg capsule 100 mg PO TID PRN (Reason: cough) Qty: 30 0RF albuterol sulfate [Ventolin HFA] 90 mcg/actuation HFA aerosol inhaler 2 puff inhalation QID PRN (Reason: shortness of breath or wheezing) Qty: 8.5 0RF codeine-guaifenesin [G Tussin AC] 10-100 mg/5 mL liquid 10 ml PO Q4-6H PRN (Reason: cough) 3 Days Qty: 120 0RF Follow-up/Referrals: Macy,Bereket Fontenot MD [Primary Care Provider] - 3 Days Time of Disposition: 14:20
[2024-10-17 14:28] LABS: EDCOVIDSCREEN Negative (Negative); EDINFLUASCREEN Negative (Negative); EDINFLUBSCREEN Negative (Negative); EDSTREPNEGPOS1 Negative (Negative)
== END 2024-10-17 14:34 | disposition home or self-care (01) ==
PROVIDERS: Emergency Provider Nurse Practitioner Family; PCP Internal Medicine
DX: B34.9 Viral infection, unspecified (principal); J44.9 Chronic obstructive pulmonary disease, unspecified; F17.210 Nicotine dependence, cigarettes, uncomplicated; Z20.822 Contact with and (suspected) exposure to COVID-19
CPT/HCPCS: 87081; 87426; 87804; 87880; 99213; G0463

== ENCOUNTER 2025-01-20 03:43 | Emergency (ER) | payer OTHER, SELFPAY ==
--- NOTE | ~2025-01-20 | XR_ITS ---
EXAMINATION: XR knee RT 3V DATE: 01/20/2025 04:06 INDICATION: Right knee injury TECHNIQUE: Anteroposterior, oblique and crosstable lateral views of the right knee were obtained COMPARISON: None. FINDINGS: Alignment is normal. No fracture. No joint effusion/layering lipohemarthrosis. Prominent prepatellar soft tissue swelling with increased density which in setting of trauma would be most consistent with a large hematoma. IMPRESSION: 1. Large prepatellar hematoma. No joint effusion or acute osseous abnormality. Reviewed, dictated and finalized at location A.
[2025-01-20 03:45] VITALS: BP 125/79; PULSE 110; RESP 17; TEMP 36.8; O2SAT 98
--- OUTSIDE RECORDS SUMMARY | 2025-01-20 03:45 | XMS_ITS | Clinical Summary ---
Author Organization [facility] Address [address] [place] [address] Care Team Providers Care Showcase Trimmer Name Role Phone Diamond Sanchez MD Primary Care Provider [phone] Allergies Active Allergy Reactions Criticality Noted Date Comments Gabapentin Swelling 02/28/2022 Medications midodrine 5 MG tablet Take 1 tablet (5 mg total) by mouth 2 (two) times a day. Active OLANZapine (ZYPREXA) 5 MG tablet Take 1 tablet (5 mg total) by mouth daily. 3 Active hydrOXYzine (ATARAX) 10 MG tabletIndicatio ns:Other insomnia Take 1 tablet (10 mg total) by mouth 2 (two) times daily. 90 tablet 1 3 Active hydrOXYzine (VISTARIL) 25 MG capsule 1 - 2 capsules up to 3 times a day as needed for anxiety Orally Once a day for 30 days 3 Active prazosin (MINIPRESS) 1 MG capsule nightly at bedtime. 3 Active omeprazole (PRILOSEC) 40 MG capsule Take 1 capsule (40 mg total) by mouth daily. Active OLANZapine (ZYPREXA) 10 MG tablet 4 Active predniSONE 50 MG tablet Take 1 tablet (50 mg total) by mouth daily. 4 Active benzonatate (TESSALON) 100 MG capsule Take 1 capsule (100 mg total) by mouth 3 (three) times daily as needed. FOR COUGH 4 Active albuterol sulfate HFA 108 (90 Base) MCG/ACT inhaler INHALE 2 PUFFS BY MOUTH FOUR TIMES DAILY NEEDED FOR SHORTNESS OF BREATH OR WHEEZING 4 Active prazosin (MINIPRESS) 2 MG capsule 4 Active Active Problems Problem Noted Date Diagnosed Date Other insomnia 02/28/2022 Memory loss 02/28/2022 COPD (chronic obstructive pu lmonary disease) ([facility]) Asthma ([facility]) Moderate episode of recurrent major depressive d isorder Seizure-like activity ([facility]) Concussion with loss of consciousness Generalized anxiety disorder Bipolar 1 disorder ([facility]) Hypotension Family History Medical History Relation Comments Asthma Father Cancer Father stomach Cancer Mother lung Hypertension Mother Cancer Paternal Grandmother bladder Colon Cancer Paternal Grandmother Relation Status Comments Father Mother Paternal Grandmother Social History Tobacco Use Types Packs/Day Years Used Date Smoking Tobacco: Every Day Cigarettes 1 38 Started: 1981; Last attempted to quit: 2019 Smokeless Tobacco: Never Tobacco Cessation:Ready to Q uit: No; Counseling Given: Yes Comments:smokes with company 1 or 2 Alcohol Use Standard Drinks/Week Comments Not Currently 0 (1 standard drink = 0.6 oz pur e alcohol) PHQ-2 Answer Date Recorded Patient Health Questionnaire-2 Score 4 07/03/2023 Comments No Sex and Gender Information Value Date Recorded Sex Assigned at Not on file Legal Sex Female 6:40 PM CDT Gender Identity Not on file Sexual Orientation Not on file Last Filed Vital Signs Vital Sign Reading Time Taken Comments Blood Pressure 136/70 08/15/2023 12:20 PM CLINICAL MICROBIOLOGIST Pulse 94 08/15/2023 12:20 PM CLINICAL MICROBIOLOGIST Temperature 36.7 C (98.1 F) 07/03/2023 11:17 AM CDT Respiratory Rate 16 07/03/2023 11:17 AM CDT Oxygen Saturation 98% 08/15/2023 12:20 PM CLINICAL MICROBIOLOGIST Inhaled Oxygen Concentration - - Weight 68 kg (150 lb) 08/15/2023 12:20 PM CLINICAL MICROBIOLOGIST Height 162.6 cm (5' 4 ) 08/15/2023 12:20 PM CLINICAL MICROBIOLOGIST Body Mass Index 25.75 08/15/2023 12:20 PM CLINICAL MICROBIOLOGIST Plan of Treatment Health Maintenance Due Date Last Done Comments Cervical Cancer Screening Pa p Smear (Age 30 to 64) Every 3 Years 1966 Colorectal Cancer Screening Colonoscopy (10 Years) 1966 DTaP, Tdap and Td Vaccines ( 1 - Tdap) 1985 Hepatitis B Vaccines (1 of 3 - 19+ 3-dose series) 1985 Pneumococcal Vaccine: 50+ Ye ars (1 of 2 - PCV) 1985 Mammogram Screening 2006 Zoster Vaccines (1 of 2) 01/06/2016 COVID-19 Vaccine (1 - 2023-2 5 season) 2024 Annual Physical 07/03/2024 07/03/2023 PHQ-2 (Physician [place]) 09/04/2024 07/03/2023 Cervical Cancer Screening Pa p with HPV Testing (Age 30 to 64) Every 5 Years 09/04/2025 Cervical Cancer Screening with HPV 09/04/2025 Hepatitis C Completed 02/28/2022 Meningococcal B Vaccine Aged Out No l onger eligible based on patient's age to complete this topic Meningococcal Vaccine Aged Out No zena magnus eligible based on patient's age to complete this topic RSV Immunizations Under 20 Months Aged Out No longer eligible based on patient's age to complete this topic Procedures Procedure Name Priority Date/Time Associated Diagnosis Comments HEPATITIS C ANTIBODY Routine 02/28/2022 12:31 PM CDT Encounter for hepatitis C virus screening test for high risk patient from Last 3 Months or Most Recently Relevant to Health Maintenance Results * (ABNORMAL) HEPATITIS C ANTIBODY (02/28/2022 12:31 PM CDT) HEPATITIS C AB REACTIVE(A ) NON-REACTI VE 02/28/2022 3:39 PM CDT [facility] Comment: NOTE: A POSITIVE RESULT WILL BE CONFIRMED BY THE HEP C RNA, QUANT, PCR TEST. 02/28/2022 12:3 1 PM CDT us Maverick Cabrera DO LABORATORY Final Result [facility] [address] [place] [address], [place] [phone] from Last 3 Months or Most Recently Relevant to Health Maintenance Insurance [employer] Care Teams Showcase Trimmer Relationship Specialty Start Date End Date Diamond Sanchez MD [address] [place] [address] PCP - General FAMILY PRACTICE 09/30/22
--- OUTSIDE RECORDS SUMMARY | 2025-01-20 03:45 | XMS_ITS | Continuity of Care Document ---
Author Organization [facility] Address [address] [place] [address] [place] [address] Phone Care Team Providers Care Pot Maker Name Role Phone Henrry Manning MD Unavailable Unavailable Allergies, Adverse Reactions, Alerts Substance Reaction Status Criticality No Known Allergies Active No Inform ation Procedures Procedure Date OFFICE/OUTPATIENT VISIT, EST OFFICE/OUTPATIENT VISIT, EST OFFICE/OUTPATIENT VISIT, EST PREV VISIT, EST, AGE 40-64 OFFICE/OUTPATIENT VISIT, EST OFFICE/OUTPATIENT VISIT, EST OFFICE/OUTPATIENT VISIT, EST OFFICE/OUTPATIENT VISIT, EST OFFICE/OUTPATIENT VISIT, EST OFFICE/OUTPATIENT VISIT, EST OFFICE/OUTPATIENT VISIT, EST OFFICE/OUTPATIENT VISIT, EST OFFICE/OUTPATIENT VISIT, EST OFFICE/OUTPATIENT VISIT, EST OFFICE/OUTPATIENT VISIT, EST PREV VISIT, EST, AGE 40-64 OFFICE/OUTPATIENT VISIT, EST OFFICE/OUTPATIENT VISIT, EST OFFICE/OUTPATIENT VISIT, EST OFFICE/OUTPATIENT VISIT, EST OFFICE/OUTPATIENT VISIT, EST OFFICE/OUTPATIENT VISIT, EST OFFICE/OUTPATIENT VISIT, EST OFFICE/OUTPATIENT VISIT, EST OFFICE/OUTPATIENT VISIT, EST OFFICE/OUTPATIENT VISIT, EST OFFICE/OUTPATIENT VISIT, EST OFFICE/OUTPATIENT VISIT, EST PREV VISIT, EST, AGE 40-64 OFFICE/OUTPATIENT VISIT, EST OFFICE/OUTPATIENT VISIT, EST OFFICE/OUTPATIENT VISIT, EST OFFICE/OUTPATIENT VISIT, EST OFFICE/OUTPATIENT VISIT, EST OFFICE/OUTPATIENT VISIT, EST OFFICE/OUTPATIENT VISIT, EST OFFICE/OUTPATIENT VISIT, EST OFFICE/OUTPATIENT VISIT, EST OFFICE/OUTPATIENT VISIT, EST OFFICE/OUTPATIENT VISIT, EST OFFICE/OUTPATIENT VISIT, EST OFFICE/OUTPATIENT VISIT, EST OFFICE/OUTPATIENT VISIT, EST OFFICE/OUTPATIENT VISIT, EST PREV VISIT, NEW, AGE 40-64 OFFICE/OUTPATIENT VISIT, NEW Advance Directives Directive Yes / No Effective Date File Name No Information Encounters Encounter Description Practice Location Reason(s) For Visit Diagnoses Date Provider Providers Copied on Encounter OFFICE/OUTPA TIENT VISIT, [facility], [address], [place], [address], tel:[phone] [facility] HLP (chief complaint) A1c (chief complaint) LBP (chief complaint) anxiety1 (chief complaint) HyperlipidemiaHyper glycemiaLow back painGeneralized anxiety disorder 6-201 6 Nigel Sales. [address] [place], [address] , [place]. tel:[phone] Referring Provider: Henrry Manning [address], [place], [address]. tel:[phone] OFFICE/OUTPA TIENT VISIT, [facility], [address], [place], [address], tel:[phone] [facility] anxiety1 (chief complaint) back pain1 (chief complaint) HLP (chief complaint) sick (chief complaint) Mixed hyperlipidemiaHyper glycemiaLow back painGeneralized Anxiety Disorder 6 Nigel Sales. [address], [place], [place], [address] , [place]. tel:[phone] Referring Provider: Dionne Cotton [address], [place], [place], [address]. tel:[phone] OFFICE/OUTPA TIENT VISIT, EST [facility], [address], [place], [place], [address], [place] tel:[phone] [facility] back pain1 (chief complaint) anxiety1 (chief complaint) hot flush (chief complaint) Menopausal disorderLow back painGeneralized anxiety disorder 6 Nig[address] Sales. [address], [place], [place], [address] , [place]. [phone] Referring Provider: Dionne Cotton [address], [place], [place], [address]. tel:[phone] PREV VISIT, EST, AGE 40-64 [facility], [address], [place], [place], [address], [place] tel:[phone] [facility] Medicine PHysical (chief complaint) Encounter for general adult medical exam w abnormal findingsGeneralized anxiety disorderMixed hyperlipidemiaHyper glycemia 6 Nig[address] Sales. [address], [place], [place], [address] , [place]. tel:[phone] Referring Provider: Dionne [address], [place], [place], [address]. tel:[phone] OFFICE/OUTPA TIENT VISIT, EST [facility], [address], [place], [place], [address], [place] tel:[phone] [facility] back pain1 (chief complaint) anxiety1 (chief complaint) Chronic pain syndromeGeneralized anxiety disorder 6 Nig[address] Sales. [address], [place], [place], [address] , [place]. tel:[phone] Referring Provider: Dionne Cotton [address], [place], [place], [address]. tel:[phone] OFFICE/OUTPA TIENT VISIT, [facility], [address], [place], [place], [address], [place] tel:[phone] [facility] glucose (chief complaint) HLP (chief complaint) hematuria (chief complaint) bakc pain1 (chief complaint) anxiety1 (chief complaint) Mixed hyperlipidemiaHyper glycemiaHematuriaCh ronic pain syndrome 6 Nigel Sales. [address], [place], [place], [address] , [place]. tel:[phone] Referring Provider: Dionne Cotton [address], [place], [place], [address]. tel:[phone] OFFICE/OUTPA TIENT VISIT, [facility], [address], [place], [place], [address], [place] tel:[phone] [facility] back pain1 (chief complaint) anxiety1 (chief complaint) Chronic pain syndromeGeneralized Anxiety Disorder 6 Nig[address] Sales. [address], [place], [place], [address] , [place]. tel:[phone] Referring Provider: Dionne Cotton [address], [place], [place], [address]. tel:[phone] OFFICE/OUTPA TIENT VISIT, [facility], [address], [place], [place], [address], [place] tel:[phone] [facility] back pain1 (chief complaint) anxiety1 (chief complaint) Chronic pain syndromeGeneralized Anxiety Disorder 5 Nigel Sales. [address], [place], [address] , [place]. tel:[phone] Referring Provider: Dionne [address], [place], [place], [address]. tel:[phone] OFFICE/OUTPA TIENT VISIT, [facility], [address], [place], [address], [place] tel:[phone] [facility] back pain1 (chief complaint) anxiety1 (chief complaint) HLP1 (chief complaint) vasomotor symptoms (chief complaint) Other spondylosis, lumbar regionGeneralized anxiety disorderMixed hyperlipidemiaPerim enopausal disorder 5 Nigel Sales. [address], [place], [address] , [place]. tel:[phone] Referring Provider: Dionne [address], [place], [place], [address]. tel:[phone] OFFICE/OUTPA TIENT VISIT, [facility], [address], [place], [place], [address], [place] tel:[phone] [facility] anxiety (chief complaint) Anxiety (chief complaint) back pain (chief complaint) Back pain (chief complaint) LumbagoDepressive disorder, not elsewhere classified 5 Nigel Sales. [address], [place], [place], [address] , [place]. tel:[phone] Referring Provider: Dionne [address], [place], [place], [address]. tel:[phone] OFFICE/OUTPA TIENT VISIT, [facility], [address], [place], [place], [address], [place] tel:[phone] [facility] weight gain (chief complaint) Anxiety (chief complaint) back pain (chief complaint) Abnormal weight gainLumbagoGenerali zed Anxiety Disorder 5 Nigel Sales. [address], [place], [address] , [place]. tel:[phone] Referring Provider: Dionne Cotton [address], [place], [place], [address]. tel:[phone] OFFICE/OUTPA TIENT VISIT, [facility], [address], [place], [place], [address], [place] tel:[phone] [facility] right shoulder pain (chief complaint) back pain (chief complaint) HTN (chief complaint) Anxiety (chief complaint) Blood pressure elevatedShoulder painLumbagoGenerali zed anxiety disorder 5 Nigel Sales. [address], [place], [place], [address] , [place]. [phone] Referring Provider: Dionne [address], [place], [place], [address]. tel:[phone] OFFICE/OUTPA TIENT VISIT, [facility], [address], [place], [place], [address], [place] tel:[phone] [facility] axiety (chief complaint) back pain (chief complaint) LumbagoGeneralized anxiety disorder 5 Nig[address] Sales. [address], [place], [place], [address] , [place]. [phone] Referring Provider: Dionne [address], [place], [place], [address]. tel:[phone] OFFICE/OUTPA TIENT VISIT, [facility], [address], [place], [place], [address], [place] tel:[phone] [facility] anxiety (chief complaint) back pain (chief complaint) abrasion (chief complaint) Abrasion or friction burn of other, multiple, and unspecified sites, without mention of infectionGeneralize d anxiety disorderLumbagoOpio id type dependence, unspecified use 5 Nigel Hernandez [address], [place], [address] , [place]. tel:[phone] Referring Provider: Dionne [address], [place], [place], [address]. tel:[phone] PREV VISIT, EST, AGE 40-64 [facility], [address], [place], [place], [address], [place] tel:[phone] [facility] PHysical (chief complaint) Routine Medical ExamOther and unspecified diseases of upper respiratory tractLumbagoGeneral ized anxiety disorderRoutine Medical Exam 5 Nigel Sales. [address], [place], [place], [address] , [place]. tel:[phone] Referring Provider: Dionne [address], [place], [place], [address]. tel:[phone] OFFICE/OUTPA TIENT VISIT, [facility], [address], [place], [place], [address], [place] tel:[phone] [facility] back pain (chief complaint) Anxiety (chief complaint) cough (chief complaint) LumbagoBronchitis, AcuteGeneralized anxiety disorderTobacco Abuse 5 Nigel Sales. [address], [place], [place], [address] , [place]. [phone] Referring Provider: Dionne Cotton [address], [place], [place], [address]. tel:[phone] OFFICE/OUTPA TIENT VISIT, [facility], [address], [place], [place], [address], [place] tel:[phone] [facility] back pain (chief complaint) hematuria (chief complaint) anxiety (chief complaint) cold symptoms (chief complaint) Bronchitis, AcuteHEMATURIA NOSGeneralized anxiety disorderLumbago 5 Nigel Sales. [address], [place], [place], [address] , [place]. [phone] Referring Provider: Dionne [address], [place], [address]. tel:[phone] OFFICE/OUTPA TIENT VISIT, [facility], [address], [place], [place], [address], [place] tel:[phone] [facility] back pain (chief complaint) anxiety (chief complaint) LumbagoGeneralized anxiety disorder 4 Nigel Sales. [address], [place], [place], [address] , [place]. tel:[phone] Referring Provider: Dionne [address], [place], [place], [address]. tel:[phone] OFFICE/OUTPA TIENT VISIT, [facility], [address], [place], [place], [address], [place] [phone] [facility] hematuria (chief complaint) lumbago (chief complaint) Anxiety (chief complaint) HLP (chief complaint) HEMATURIA NOSLumbagoOther and unspecified hyperlipidemiaGener alized anxiety disorder 4 Nigel Sales. [address], [place], [place], [address] , [place]. tel:[phone] Referring Provider: Henrry Manning, [address], [place], [place], [address]. tel:[phone] OFFICE/OUTPA TIENT VISIT, [facility], [address], [place], [address], [place] [phone] [facility] UTI (chief complaint) HLP (chief complaint) back pain (chief complaint) anxiety (chief complaint) Urinary Tract InfectionOther and unspecified hyperlipidemiaLumba goGeneralized anxiety disorder 0 4 Nigel Sales. [address], [place], [place], [address] , [place]. tel:[phone] Referring Provider: Henrry Manning [address], [place], [place], [address]. tel:[phone] OFFICE/OUTPA TIENT VISIT, [facility], [address], [place], [place], [address], [place] tel:[phone] [facility] back pain (chief complaint) anxiety (chief complaint) bruise (chief complaint) Spontaneous ecchymosesLumbagoGe neralized anxiety disorder 4 Nigel Sales. [address], [place], [address] , [place]. [phone] Referring Provider: Henrry Manning [address], [place], [place], [address]. tel:[phone] OFFICE/OUTPA TIENT VISIT, [facility], [address], [place], [place], [address], [place] tel:[phone] [facility] back pain (chief complaint) anxiety (chief complaint) Weight issue (chief complaint) hematuria (chief complaint) HEMATURIA NOSGeneralized anxiety disorderLumbago 4 Nigel Sales. [address], [place], [place], [address] , [place]. [phone] Referring Provider: Henrry Manning, [address], [place], [place], [address]. tel:[phone] OFFICE/OUTPA TIENT VISIT, [facility], [address], [place], [place], [address], [place] tel:[phone] [facility] weight loss (chief complaint) back pain (chief complaint) anxiety (chief complaint) lip sore (chief complaint) Loss of weightLumbagoGenera lized anxiety disorderHerpes simplex with other specified complications 4 Nigel Sales. [address], [place], [address] , [place]. [phone] Referring Provider: Dionne [address], [place], [place], [address]. tel:[phone] OFFICE/OUTPA TIENT VISIT, [facility], [address], [place], [address], [place] [phone] [facility] back pain (chief complaint) insomnia (chief complaint) anxiety (chief complaint) Insomnia, OtherDepressionLumb agoGeneralized anxiety disorder 4 Nig[address] Sales. [address], [place], [place], [address] , [place]. [phone] Referring Provider: Dionne [address], [place], [place], [address]. tel:[phone] OFFICE/OUTPA TIENT VISIT, [facility], [address], [place], [place], [address], [place] tel:[phone] [facility] Medicine cough (chief complaint) back pain (chief complaint) Chest Pain, UnspecifiedBronchit is, AcuteLumbago 4 Nigel Sales. [address], [place], [place], [address] , [place]. tel:[phone] Referring Provider: Dionne [address], [place], [place], [address]. tel:[phone] OFFICE/OUTPA TIENT VISIT, [facility], [address], [place], [place], [address], [place] tel:[phone] [facility] back pain (chief complaint) anxiety (chief complaint) Insomnia (chief complaint) Insomnia, OtherLumbagoGeneral ized anxiety disorder 4 Nigel Hernandez [address], [place], [place], [address] , [place]. tel:[phone] Referring Provider: Dionne [address], [place], [place], [address]. tel:[phone] PREV VISIT, EST, AGE 40-64 [facility], [address], [place], [place], [address], [place] tel:[phone] [facility] PHysical (chief complaint) Routine Medical ExamHEMATURIA NOSLumbagoGeneraliz ed anxiety disorderRoutine Medical Exam 4 Nigel Hernandez [address], [place], [place], [address] , [place]. [phone] Referring Provider: Dionne Cotton [address], [place], [place], [address]. tel:[phone] OFFICE/OUTPA TIENT VISIT, EST [facility], [address], [place], [place], [address], [place] tel:[phone] [facility] abdominal pain (chief complaint) Abdominal PainHEMATURIA NOSAcute pyelonephritis without lesion of renal medullary necrosis 4 Nigel Hernandez [address], [place], [place], [address] , [place]. [phone] Referring Provider: Dionne Cotton [address], [place], [place], [address]. tel:[phone] OFFICE/OUTPA TIENT VISIT, [facility], [address], [place], [place], [address], [place] [phone] [facility] urinary straining (chief complaint) back pain (chief complaint) LumbagoAbdominal PainHEMATURIA NOS 4 Nigel Sales. [address], [place], [place], [address] , [place]. tel:[phone] Referring Provider: Dionne Cotton [address], [place], [place], [address]. tel:[phone] OFFICE/OUTPA TIENT VISIT, [facility], [address], [place], [place], [address], [place] tel:[phone] [facility] syncope (chief complaint) back pain (chief complaint) sore throat (chief complaint) anxiety (chief complaint) hematuria (chief complaint) Syncope and collapseLumbagoHEMA TURIA NOS 3 Nigel Sales. [address], [place], [place], [address] , [place]. tel:[phone] Referring Provider: Dionne Cotton [address], [place], [place], [address]. tel:[phone] OFFICE/OUTPA TIENT VISIT, [facility], [address], [place], [place], [address], [place] tel:[phone] [facility] sepsis (chief complaint) back pain (chief complaint) edema (chief complaint) anxiety (chief complaint) Pyelonephritis, unspecifiedSepsisLu mbagoEdema 3 Nigel Sales. [address], [place], [place], [address] , [place]. tel:[phone] Referring Provider: Dionne [address], [place], [place], [address]. tel:[phone] OFFICE/OUTPA TIENT VISIT, [facility], [address], [place], [place], [address], [place] tel:[phone] [facility] back pain (chief complaint) anxiety (chief complaint) LumbagoInsomnia, OtherGeneralized anxiety disorder 3 Nigel Sales. [address], [place], [place], [address] , [place]. tel:[phone] Referring Provider: Henrry Manning, [address], [place], [place], [address]. tel:[phone] OFFICE/OUTPA TIENT VISIT, [facility], [address], [place], [place], [address], [place] tel:[phone] [facility] back pain (chief complaint) cough (chief complaint) Acute upper respiratory infections of other multiple sitesAllergic rhinitis, cause unspecifiedLumbago 3 Nigel Sales. [address], [place], [address] , [place]. tel:[phone] Referring Provider: Henrry Manning, [address], [place], [place], [address]. tel:[phone] OFFICE/OUTPA TIENT VISIT, [facility], [address], [place], [place], [address], [place] tel:[phone] [facility] back pain (chief complaint) Lumbago 3 Nigel Sales. [address], [place], [address] , [place]. tel:[phone] Referring Provider: Henrry Manning, [address], [place], [place], [address]. tel:[phone] OFFICE/OUTPA TIENT VISIT, [facility], [address], [place], [place], [address], [place] tel:[phone] [facility] back pain (chief complaint) Lumbago 3 Nigel Sales. [address], [place], [place], [address] , [place]. tel:[phone] Referring Provider: Dionne Cotton [address], [place], [place], [address]. tel:[phone] OFFICE/OUTPA TIENT VISIT, [facility], [address], [place], [place], [address], [place] tel:[phone] [facility] LBP (chief complaint) Tick bite (chief complaint) LumbagoCellulitis and abscess of other specified sites 3 Nigel Sales. [address], [place], [place], [address] , [place]. tel:[phone] Referring Provider: Dionne [address], [place], [place], [address]. tel:[phone] OFFICE/OUTPA TIENT VISIT, [facility], [address], [place], [place], [address], [place] tel:[phone] [facility] back pain (chief complaint) sinus (chief complaint) LumbagoPain in joint involving lower legAcute maxillary sinusitis 3 Nigel Sales. [address], [place], [place], [address] , [place]. [phone] Referring Provider: Dionne Cotton [address], [place], [place], [address]. tel:[phone] OFFICE/OUTPA TIENT VISIT, [facility], [address], [place], [place], [address], [place] tel:[phone] [facility] back pain (chief complaint) knee pain (chief complaint) insomnia (chief complaint) LumbagoPain in joint involving lower legInsomnia, Other 3 Nigel Sales. [address], [place], [place], [address] , [place]. tel:[phone] Referring Provider: Dionne [address], [place], [place], [address]. tel:[phone] OFFICE/OUTPA TIENT VISIT, [facility], [address], [place], [place], [address], [place] tel:[phone] [facility] back pain (chief complaint) KNee pain (chief complaint) HLP (chief complaint) LumbagoRespiratory abnormality, unspecifiedOther and unspecified hyperlipidemiaUnspe cified vitamin d deficiency Dec- 3 Nigel Sales. [address], [place], [place], [address] , [place]. [phone] Referring Provider: Henrry Manning, [address], [place], [place], [address]. tel:[phone] OFFICE/OUTPA TIENT VISIT, [facility], [address], [place], [place], [address], [place] tel:[phone] [facility] back pain (chief complaint) SOB (chief complaint) Insomnia (chief complaint) LumbagoRespiratory abnormality, unspecifiedInsomnia , Other Mar-2 3 Nigel Sales. [address], [place], [place], [address] , [place]. tel:[phone] Referring Provider: Dionne Cotton [address], [place], [place], [address]. tel:[phone] OFFICE/OUTPA TIENT VISIT, [facility], [address], [place], [place], [address], [place] tel:[phone] [facility] back pain (chief complaint) Insomnia (chief complaint) COPD (chief complaint) Respiratory abnormality, unspecifiedInsomnia , OtherLumbago Feb-0 3 Nigel Sales. [address], [place], [place], [address] , [place]. tel:[phone] Referring Provider: Dionne Cotton [address], [place], [place], [address]. tel:[phone] PREV VISIT, NEW, AGE 40-64 [facility], [address], [place], [place], [address], [place] tel:[phone] [facility] Physical (chief complaint) COPD (chief complaint) Routine Medical ExamLumbagoCOPDRkaiser [facility] hospital Medical Exam 3 Nigel Sales. [address], [place], [place], [address] , [place]. tel:[phone] Referring Provider: Henrry Manning, [address], [place], [place], [address]. tel:[phone] Family History Family Member Type Diagnosis Age At Onset Brother Problem (finding) Alive and well Father Problem (finding) Cancer - abdominal Mother Problem (finding) Cancer, lung Payers Payer name Insurance type Covered republican ID Authoriza tion(s) No Information Social History Type Description Quantity Date Captured Comments Alcohol Use Details No Caffeine Use Details Unknown Tobacco Use Status Light cigarette smok er (1-9 cigs/day) Smoking Status Light tobacco smoker Sex Female Vital Signs Date / Time: Height Weight BMI Pulse Rate Blood Pressure Temperature Respiratory Rate Body Surface Area Head Circumference BMI percentile Pulse Ox Inhaled Ox 7:52 PM 63.00 in 128.00 lbs 22.6 7 kg/m eter (2) 78 /min 131/80 mm[Hg] 98.5 F 18 /min Chief Complaint And Reason For Visit From encounter dated '03/09/2016 18:00'. HLP (chief complaint). Description: Pt has HLP. Pt failed diet and execise. Pt denies any chest pain A1c (chief complaint). Description: Pt has normal BG and her A1c is slighlty high. Pt denies any polyuria, polydipsia. LBP (chief complaint). Description: Pt has chronic low back apin. pt denies any loss of bowel or bladder control. Pt denies any wrosenign pain. Pt has sciatica and leg numbness. anxiety1 (chief complaint). Description: Pt has chronic anxiety. PT denies any depression or any suicidal thought Pt stoped effexor on her own several weeks ago. Pt denies any crying spells. Plan Of Treatment Date Type Action Status Goal Td vaccine. Due on 16 due Goal Sigmoidoscopy. Due on due Goal Influenza vaccine. Due on due Goal Pap/HPV testing. Due on due Goal Depression screening. Due on due Goal FOBT. Due on due Goal Tdap. Due on due Goal Colonoscopy. Due on 016 due Goal Depression screening. Due on due Goal Tdap. Due on due Goal Td vaccine. Due on 16 due Goal FOBT. Due on due Goal Pap/HPV testing. Due on due Goal Sigmoidoscopy. Due on due Goal Influenza vaccine. Due on due Goal Colonoscopy. Due on 016 due Goal Td vaccine. Due on 16 due Goal Colonoscopy. Due on 016 due Goal Tdap. Due on due Goal Pap/HPV testing. Due on due Goal FOBT. Due on due Goal Depression screening. Due on due Goal Sigmoidoscopy. Due on due Goal Influenza vaccine. Due on due Goal Depression screening. Due on due Goal Pap/HPV testing. Due on due Goal Td vaccine. Due on 16 due Goal Tdap. Due on due Goal Depression screening. Due on due Goal Td vaccine. Due on 16 due Goal Pap/HPV testing. Due on due Goal Tdap. Due on due Goal Td vaccine. Due on 16 due Goal Pap/HPV testing. Due on due Goal Depression screening. Due on due Goal Tdap. Due on due Goal Depression screening. Due on due Goal Tdap. Due on due Goal Pap/HPV testing. Due on due Goal Td vaccine. Due on due Goal Tdap. Due on due Goal Td vaccine. Due on due Goal Pap/HPV testing. Due on due Goal Depression screening. Due on due Goal Pap/HPV testing. Due on due Goal Tdap. Due on due Goal Td vaccine. Due on due Goal Depression screening. Due on due Goal Pap/HPV testing. Due on due Goal Depression screening. Due on due Goal Td vaccine. Due on 15 due Goal Tdap. Due on due Goal Tdap. Due on due Goal Depression screening. Due on due Goal Td vaccine. Due on 15 due Goal Pap/HPV testing. Due on due Goal Tdap. Due on due Goal Pap/HPV testing. Due on due Goal Depression screening. Due on due Goal Td vaccine. Due on 15 due Goal Pap/HPV testing. Due on due Goal Td vaccine. Due on 15 due Goal Tdap. Due on due Goal Depression screening. Due on due Goal Mammogram. Due on 3 due Goal Tobacco cessation counseling completed Referral Ordered: Referral: OBGYN. ordered Referral Ordered: Referral: Urology. ordered Referral Ordered: CT ABDOMEN W/DYE ordered Referral Ordered: MAMMOGRAM, SCREENING ordered Referral Referred To: Physical Therapy Ordered: Referral: Physical Therapy. ordered Referral Ordered: KNEE XRAY TWO-VIEW Bilateral ordered Referral Ordered: CHEST X-RAY PA/LAT TWO-VIEWS ordered History Of Present Illness Encounter Date Complaint History Of Prese nt Illness HLP Pt has HLP. Pt f abram diet and execise. Pt denies any chest pain A1c Pt has normal BG and her A1c is slighlty high. Pt denies any polyuria, polydipsia. LBP Pt has chronic l ow back apin. pt denies any loss of bowel or bladder control. Pt denies any wrosenign pain. Pt has sciatica and leg numbness. anxiety1 Pt has chronic a nxiety. PT denies any depression or any suicidal thought Pt stoped effexor on her own several weeks ago. Pt denies any crying spells. anxiety1 Pt has chronic a nxiety and depression. pt takes effexor and xaax and doign ok. Pt denies any suicidal or homicdial thought Her menopausl symptmos are better with effexor. back pain1 Pt has chronic l ow back pain. Pt denies any loss of bowel ro bladder control. Pt denies any worsening pain HLP Pt has HLP. Pt i s trying low fat and low carb diet sick Pt c/o stomach u pset and quizzy feeling and some nonbloody diarrhea for one week. No fever or abd pain No vomiting. Pt denies any sick contact back pain1 Pt has chronic l ow back pain Pt denies any loss of bowel or bladder control. Pt denie any worsening pain. Pt c/o mild sciatica symptoms but no leg numbness anxiety1 Pt has chornic a nxiety Pt denies any depression or any suicidal thought Pt denies any cyring spells. pt doing ok hot flush Pt has been havi ng hot flash recenlty. Pt has been having very scattered and irregular spotting. Pt feels irritbile PHysical Pt needs annual physical. Pt has chronic low back pain with sciatica and some numnbess. Pt denies any worsening pain. Pt has chronic anxiety. Pt denies any depression or any suicidal thought. Pt states that her anxiety is getting worse PT wants to go back to xanax. Pt has HLP and mild hyperglycemia. Pt is on low fat and low carb diet. Pt denies any other complaints back pain1 Pt has chronic L BP. Pt denies any loss of bowel or bladder control. Pt denies any scaitica or any numnbess. Pt doing ok anxiety1 Pt has chronic a nxiety Pt denies any depression or any suicidal thought. Pt stopped celexa on her own for several months and doing ok. Pt denies any cyring spells Pt denies any feeling of hopelessness. anxiety1 Pt has chronic a nxiety and depression. Pt takes celex and xanxa. Pt states that xanax only works for very short amount of time and she wants to try long acting benzo. Pt dnies any suicidal or homicidal thought. glucose Pt has mild elev atd glucose Pt denies any polyuria, polydispia HLP Pt has HLP. Pt d oes not want to take meds. Pt wants to try low fat and low carb diet first hematuria Pt has recurrent hematuria. Pt was evaluated by urology in the past Pt had negative cysto per pt by urology. Pt also has recurrent UTI. Pt c/o mild dysuria for several weeks. Pt denies any urgency and freuqency. bakc pain1 Pt has chornic l ow back pain. Pt c/o sciatica. Pt denies any loss of bowel or bladder control back pain1 Pt has chrnoic l ow back apin Pt denies any loss of bowel or bladder control. Pt has mild sciatica and some leg numnbess Pt denies any worsening pain anxiety1 Pt has chronic a nxiety and depression Pt takes celexa and xanax .pt denies any suicidal thought pt denies any crying spells. Pt denies any feeling of hopelessness back pain1 Pt has chronic l ow back pain. Pt denies any loss of bowel or bladder control. Pt denies any worsening pain. Pt has bilateral scaitica and some numbness. . Pt failed PT anxiety1 Pt has chronic a nxeity and depression. Pt takes celexa and xnax. Pt denies any suicidal or homicidal thought. Pt denies any crying spells Pt denies any feeling of hopelessness anxiety1 Pt has chrnoic a nxiety and depression. Pt has been taking celexa and xanax. Pt has been doing much better. Her mood is much better. Pt denies any suicidal or homicidal thought Pt denies any crying spells. Pt denies feeling of hopelessness. back pain1 Pt has chronic L BP. Pt failed PT pt denies any loss of bowel or bladder control. Pt denies any sciatica. Pt denies any worsening pain HLP1 Pt has HLP. Pt i s trying low fat and low carb diet. Pt has not done labyet vasomotor symptoms Pt has been h aving hot flashs and some diffuse [id number]|2025-01-20 05:02:06|2025-01-20 05:02:06|ED.LOWEXIN||||"HPI - Extremity Injury (Lower) General Chief Complaint: Extremity Injury, Lower Stated Complaint: right knee injury Time Seen by Provider: 01/20/25 04:36 History of Present Illness HPI Narrative: Patient tripped and fell, landing on her right knee, causing a large amount of swelling and pain, she is able to bear weight but has pain with walking Related Data Home Medications Medication Instructions Recorded Confirmed Last Taken Type albuterol sulfate 90 mcg/actuation 2 puff inhalation Q6-8H PRN 09/24/23 10/17/24 Unknown History aerosol inhaler shortness of breath or wheezing budesonide-formoterol HFA 80 2 puff inhalation Q12H 09/24/23 10/17/24 Unknown History mcg-4.5 mcg/actuation aerosol inhaler (Symbicort) hydroxyzine pamoate 25 mg capsule 25 mg PO Q8H PRN anxiety 09/24/23 10/17/24 Unknown History olanzapine 5 mg tablet 5 mg PO DIRECTED 09/24/23 10/17/24 Unknown History prazosin 2 mg capsule 2 mg PO QPM 09/24/23 10/17/24 Unknown History Allergies Allergy/AdvReac Type Severity Reaction Status Date / Time azithromycin Allergy Unknown Other Verified 01/20/25 03:44 GUINEAN GINSENG Allergy Unknown Other Uncoded 01/20/25 03:44 GUARANA SEED EXTRACT Allergy Unknown Other Uncoded 01/20/25 03:44 TELUGU GINSENG Allergy Unknown Other Uncoded 01/20/25 03:44 SIBERIAN GINSENG ROOT EXTRACT Allergy Unknown Other Uncoded 01/20/25 03:44 Review of Systems Review of Systems: All systems reviewed & are unremarkable except as noted in HPI and below PMFSH Past Medical History Medical History Irritable bowel syndrome (IBS) Hypotension Migraine Headache COPD (chronic obstructive pulmonary disease) Allergies Surgical History Surgical History Hx of cholecystectomy Family History Family History Father Alcoholism Mother Hypertension Grandparent Alcoholism Hypertension Social History Social History Smoking status: Current every day smoker Tobacco type: cigarettes Alcohol intake: never Substance use: never Living arrangements: with family Gender identity (if verbalized by the patient): Female Spiritual care concerns: No Exam Narrative: EXAMINATION OF ORGAN SYSTEMS/BODY AREAS: Constitutional: Vital signs per nursing GENERAL: Crying HEAD: Normal with no signs of head trauma. EYES: EOMI, conjunctiva normal ENT: Hearing grossly intact LUNGS: Nonlabored breathing. HEART: [Regular rate and rhythm], normal DP pulse ABD: [Soft], [nontender to palpation] EXT: Impressive prepatellar swelling SKIN: Tiny abrasion to knee NEURO: [Alert and oriented x 3. No gross focal sensory or strength deficits.] PSYCH: Normal affect Course Vital Signs Vital signs: Vital Signs Temperature 98.2 F 01/20/25 03:45 Pulse Rate 110 H 01/20/25 03:45 Respiratory Rate 17 01/20/25 03:45 Blood Pressure 125/79 01/20/25 03:45 Pulse Oximetry 98 01/20/25 03:45 Oxygen Delivery Room Air 01/20/25 03:45 Temperature 98.2 F 01/20/25 03:45 Pulse Rate 94 01/20/25 04:53 Respiratory Rate 16 01/20/25 04:53 Blood Pressure 138/85 01/20/25 04:53 Pulse Oximetry 98 01/20/25 04:53 Oxygen Delivery Room Air 01/20/25 03:45 MDM - Extremity Injury (Lower) MDM Narrative Medical decision making narrative: Patient presents after fall and injury to right knee, on exam there is extreme swelling to the knee, patient tearful, she is neurovascularly intact and able to bear weight and move her knee with good pulses. Given [place] for pain, knee x-ray obtained on my independent interpretation no obvious fracture but she has a likely prepatellar bursitis. Given Gurinder wrap, crutches, tetanus updated, prescriptions for pain medication and close follow-up to Orthopedics with care instructions with diagnosis explained to patient and partner at bedside. They are agreeable to this plan with return precautions Discharge Plan Discharge Clinical Impression: Bursitis, prepatellar, right Patient Disposition: Home Condition: Stable Instructions: Knee Bursitis (ED) Additional Instructions: Please keep your knee elevated, take medications as prescribed, use ice, and follow-up with the orthopedic doctor. Try not to put any weight on your knee, you can always return to the ER for any further or worsening issues. Patient Language: [place] Islander Prescriptions: New prednisone 20 mg tablet 40 mg PO DAILY 5 Days Qty: 10 0RF ibuprofen 600 mg tablet 600 mg PO TID PRN (Reason: fever or pain) Qty: 30 0RF tramadol 50 mg tablet 50 mg PO Q8H PRN (Reason: pain) Qty: 7 0RF No Action olanzapine 5 mg tablet 5 mg PO DIRECTED prazosin 2 mg capsule 2 mg PO QPM hydroxyzine pamoate 25 mg capsule 25 mg PO Q8H PRN (Reason: anxiety) albuterol sulfate 90 mcg/actuation HFA aerosol inhaler 2 puff INHALATION Q6-8H PRN (Reason: shortness of breath or wheezing) budesonide-formoterol [Symbicort] 80-4.5 mcg/actuation HFA aerosol inhaler 2 puff INHALATION Q12H prednisone 50 mg tablet 50 mg PO DAILY Qty: 5 0RF benzonatate 100 mg capsule 100 mg PO TID PRN (Reason: cough) Qty: 30 0RF albuterol sulfate [Ventolin HFA] 90 mcg/actuation HFA aerosol inhaler 2 puff inhalation QID PRN (Reason: shortness of breath or wheezing) Qty: 8.5 0RF codeine-guaifenesin [G Tussin AC] 10-100 mg/5 mL liquid 10 ml PO Q4-6H PRN (Reason: cough) 3 Days Qty: 120 0RF Follow-up/Referrals: Macy,Bereket Fontenot MD [Primary Care Provider] - Marshall Wasserman MD [Physician] - 2 Days"
--- OUTSIDE RECORDS SUMMARY | 2025-01-20 03:45 | XMS_ITS ---
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 Name Role Phone Marcella Hughes Primary Care Provider REASON FOR VISIT 2 Week F/U Social History Sex Assigned At : Social History Observation Description Sex Assigned At Female Encounters Encounter Location Date Provider Diagnosis [address] [place] [address] 01/08/2025 Marcella Hughes Plan Of Treatment No Information Progress Notes * Ciarra MONTANEZElieB:1965 ([age] yo F)Acc No.[id number]:01/08/2025 UNLOCKED PROGRESS NOTE Patient: Janay ISLAS Provider: Travis Hughes DNP, APRN, PMHNP-BC :1965 A ge:60 Y S ex:Female Date:01/08/2025 Address:[address] [id number] Subjective: * Chief Complaints: * 1 . 2 Week F/U. * Medical History: Objective: * Vitals: Assessment: Plan: * Treatment: * * Electronic signature of Hiral Hylton , [id number] on 01/20/2025 at 03:45 AM CDT Sign off status: Pending * Provider: Travis Hughes DNP, APRN, PMHNP-BC Date: 01/08/2025 Generated for Printing/Faxing/eTransmitting on: 01/20/2025 03:45 AM CDT
--- OUTSIDE RECORDS SUMMARY | 2025-01-20 03:45 | XMS_ITS | Patient Health Record ---
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 Personality Disorder - client has extreme emotional swings co-occuring with multiple failed trials of antidepressants , and instability in relationships. 06/19/2024 Depressive disorder (ICD-10 - F32.9) Psychotherapy recommended. Client has information to make an appointment. R/O Personality Disorder with Cluster B traits, specifically Borderline Personality Disorder - client has extreme emotional swings co-occuring with multiple failed trials of antidepressants , and instability in relationships. 05/16/2024 Depressive disorder (ICD-10 - F32.9) Psychotherapy recommended. Client has information to make an appointment. R/O Personality Disorder with Cluster B traits, specifically Borderline Personality Disorder - client has extreme emotional swings co-occuring with multiple failed trials of antidepressants , and instability in relationships. 03/11/2024 Depressive disorder (ICD-10 - F32.9) Psychotherapy recommended. Client has information to make an appointment. R/O Personality Disorder with Cluster B traits, specifically Borderline Personality Disorder - client has extreme emotional swings co-occuring with multiple failed trials of antidepressants , and instability in relationships. 01/26/2024 Depressive disorder (ICD-10 - F32.9) Psychotherapy recommended. Client has information to make an appointment. R/O Personality Disorder with Cluster B traits, specifically Borderline Personality Disorder - client has extreme emotional swings co-occuring with multiple failed trials of antidepressants , and instability in relationships. 01/26/2024 VICKI (generalized anxiety disorder) (ICD-10 - F41.1) R/O Personality Disorder with Cluster B traits, specifically Borderline Personality Disorder - client has extreme emotional swings co-occuring with multiple failed trials of antidepressants , and instability in relationships. 03/11/2024 VICKI (generalized anxiety disorder) (ICD-10 - F41.1) R/O Personality Disorder with Cluster B traits, specifically Borderline Personality Disorder - client has extreme emotional swings co-occuring with multiple failed trials of antidepressants , and instability in relationships. 03/08/2024 VICKI (generalized anxiety disorder) (ICD-10 - F41.1) 05/16/2024 VICKI (generalized anxiety disorder) (ICD-10 - F41.1) R/O Personality Disorder with Cluster B traits, specifically Borderline Personality Disorder - client has extreme emotional swings co-occuring with multiple failed trials of antidepressants , and instability in relationships. 06/19/2024 VICKI (generalized anxiety disorder) (ICD-10 - F41.1) R/O Personality Disorder with Cluster B traits, specifically Borderline Personality Disorder - client has extreme emotional swings co-occuring with multiple failed trials of antidepressants , and instability in relationships. 07/15/2024 VICKI (generalized anxiety disorder) (ICD-10 - F41.1) R/O Personality Disorder with Cluster B traits, specifically Borderline Personality Disorder - client has extreme emotional swings co-occuring with multiple failed trials of antidepressants , and instability in relationships. 08/13/2024 VICKI (generalized anxiety disorder) (ICD-10 - F41.1) R/O Personality Disorder with Cluster B traits, specifically Borderline Personality Disorder - client has extreme emotional swings co-occuring with multiple failed trials of antidepressants , and instability in relationships. 09/12/2024 VICKI (generalized anxiety disorder) (ICD-10 - F41.1) R/O Personality Disorder with Cluster B traits, specifically Borderline Personality Disorder - client has extreme emotional swings co-occuring with multiple failed trials of antidepressants , and instability in relationships. 10/14/2024 VICKI (generalized anxiety disorder) (ICD-10 - F41.1) Psychotherapy recommended. Client has information needed to make appointment. R/O Personality Disorder with Cluster B traits, specifically Borderline Personality Disorder - client has extreme emotional swings co-occuring with multiple failed trials of antidepressants , and instability in relationships. 12/19/2024 VICKI (generalized anxiety disorder) (ICD-10 - F41.1) Psychotherapy recommended. Client has information needed to make appointment. R/O Personality Disorder with Cluster B traits, specifically Borderline Personality Disorder - client has extreme emotional swings co-occuring with multiple failed trials of antidepressants , and instability in relationships. 12/19/2024 Overweight (ICD-10 - E66.3) R/O Personality Disorder with Cluster B traits, specifically Borderline Personality Disorder - client has extreme emotional swings co-occuring with multiple failed trials of antidepressants , and instability in relationships. 10/14/2024 Overweight (ICD-10 - E66.3) R/O Personality Disorder with Cluster B traits, specifically Borderline Personality Disorder - client has extreme emotional swings co-occuring with multiple failed trials of antidepressants , and instability in relationships. 09/12/2024 Overweight (ICD-10 - E66.3) R/O Personality Disorder with Cluster B traits, specifically Borderline Personality Disorder - client has extreme emotional swings co-occuring with multiple failed trials of antidepressants , and instability in relationships. 08/13/2024 Overweight (ICD-10 - E66.3) R/O Personality Disorder with Cluster B traits, specifically Borderline Personality Disorder - client has extreme emotional swings co-occuring with multiple failed trials of antidepressants , and instability in relationships. 07/15/2024 Overweight (ICD-10 - E66.3) R/O Personality Disorder with Cluster B traits, specifically Borderline Personality Disorder - client has extreme emotional swings co-occuring with multiple failed trials of antidepressants , and instability in relationships. 06/19/2024 Overweight (ICD-10 - E66.3) R/O Personality Disorder with Cluster B traits, specifically Borderline Personality Disorder - client has extreme emotional swings co-occuring with multiple failed trials of antidepressants , and instability in relationships. 03/11/2024 Overweight (ICD-10 - E66.3) R/O Personality Disorder with Cluster B traits, specifically Borderline Personality Disorder - client has extreme emotional swings co-occuring with multiple failed trials of antidepressants , and instability in relationships. 05/16/2024 Overweight (ICD-10 - E66.3) R/O Personality Disorder with Cluster B traits, specifically Borderline Personality Disorder - client has extreme emotional swings co-occuring with multiple failed trials of antidepressants , and instability in relationships. 03/08/2024 Overweight (ICD-10 - E66.3) 01/26/2024 Overweight (ICD-10 - E66.3) R/O Personality Disorder with Cluster B traits, specifically Borderline Personality Disorder - client has extreme emotional swings co-occuring with multiple failed trials of antidepressants , and instability in relationships. 05/16/2024 Medication management (ICD-10 - Z79.899) May self-administer medications or be administered own oral medications per [facility] protocols. Provided informed consent with understanding of side effects, adverse effects, risks and benefits as well as alternative treatments as previously discussed and with the above recommended medications & other aspects of the treatment program. Agrees to return sooner if symptoms worsen or suicidal or homicidal ideations occur. R/O Personality Disorder with Cluster B traits, specifically Borderline Personality Disorder - client has extreme emotional swings co-occuring with multiple failed trials of antidepressants , and instability in relationships. 06/19/2024 Medication management (ICD-10 - Z79.899) May self-administer medications or be administered own oral medications per [facility] protocols. Provided informed consent with understanding of side effects, adverse effects, risks and benefits as well as alternative treatments as previously discussed and with the above recommended medications & other aspects of the treatment program. Agrees to return sooner if symptoms worsen or suicidal or homicidal ideations occur. R/O Personality Disorder with Cluster B traits, specifically Borderline Personality Disorder - client has extreme emotional swings co-occuring with multiple failed trials of antidepressants , and instability in relationships. 07/15/2024 Medication management (ICD-10 - Z79.899) May self-administer medications or be administered own oral medications per [facility] protocols. Provided informed consent with understanding of side effects, adverse effects, risks and benefits as well as alternative treatments as previously discussed and with the above recommended medications & other aspects of the treatment program. Agrees to return sooner if symptoms worsen or suicidal or homicidal ideations occur. R/O Personality Disorder with Cluster B traits, specifically Borderline Personality Disorder - client has extreme emotional swings co-occuring with multiple failed trials of antidepressants , and instability in relationships. 08/13/2024 Medication management (ICD-10 - Z79.899) May self-administer medications or be administered own oral medications per [facility] protocols. Provided informed consent with understanding of side effects, adverse effects, risks and benefits as well as alternative treatments as previously discussed and with the above recommended medications & other aspects of the treatment program. Agrees to return sooner if symptoms worsen or suicidal or homicidal ideations occur. R/O Personality Disorder with Cluster B traits, specifically Borderline Personality Disorder - client has extreme emotional swings co-occuring with multiple failed trials of antidepressants , and instability in relationships. 09/12/2024 Medication management (ICD-10 - Z79.899) May self-administer medications or be administered own oral medications per [facility] protocols. Provided informed consent with understanding of side effects, adverse effects, risks and benefits as well as alternative treatments as previously discussed and with the above recommended medications & other aspects of the treatment program. Agrees to return sooner if symptoms worsen or suicidal or homicidal ideations occur. R/O Personality Disorder with Cluster B traits, specifically Borderline Personality Disorder - client has extreme emotional swings co-occuring with multiple failed trials of antidepressants , and instability in relationships. 10/14/2024 Medication management (ICD-10 - Z79.899) May self-administer medications or be administered own oral medications per [facility] protocols. Provided informed consent with understanding of side effects, adverse effects, risks and benefits as well as alternative treatments as previously discussed and with the above recommended medications & other aspects of the treatment program. Agrees to return sooner if symptoms worsen or suicidal or homicidal ideations occur. Labs monitored by PCP. R/O Personality Disorder with Cluster B traits, specifically Borderline Personality Disorder - client has extreme emotional swings co-occuring with multiple failed trials of antidepressants , and instability in relationships. 12/19/2024 Medication management (ICD-10 - Z79.899) May self-administer medications or be administered own oral medications per [facility] protocols. Provided informed consent with understanding of side effects, adverse effects, risks and benefits as well as alternative treatments as previously discussed and with the above recommended medications & other aspects of the treatment program. Agrees to return sooner if symptoms worsen or suicidal or homicidal ideations occur. Labs monitored by PCP. R/O Personality Disorder with Cluster B traits, specifically Borderline Personality Disorder - client has extreme emotional swings co-occuring with multiple failed trials of antidepressants , and instability in relationships. 01/26/2024 Other May self-administer medications or be administered own oral medications per [facility] protocols. Provided informed consent with understanding of side effects, adverse effects, risks and benefits as well as alternative treatments as previously discussed and with the above recommended medications & other aspects of the treatment program. Agrees to return sooner if symptoms worsen or suicidal or homicidal ideations occur. R/O Personality Disorder with Cluster B traits, specifically Borderline Personality Disorder - client has extreme emotional swings co-occuring with multiple failed trials of antidepressants , and instability in relationships. 03/11/2024 Other Psychotherapy recommended. Client wishes to defer at this time. May self-administer medications or be administered own oral medications per [facility] protocols. Provided informed consent with understanding of side effects, adverse effects, risks and benefits as well as alternative treatments as previously discussed and with the above recommended medications & other aspects of the treatment program. Agrees to return sooner if symptoms worsen or suicidal or homicidal ideations occur. R/O Personality Disorder with Cluster B traits, specifically Borderline Personality Disorder - client has extreme emotional swings co-occuring with multiple failed trials of antidepressants , and instability in relationships. Plan Of Treatment No Information Insurance Providers Payer Name Payer Address Payer Phone Subscriber Number Group Number Insured Name Patient Relationship to Insured Coverage Start Date Coverage End Date [employer] [address] [place] [address] [id number] Janay Padilla Self - patient is the insured 3 [employer] [address] [place] [address] [id number] Janay Padilla Self - patient is the insured 3 Medical (General) History Medical History History ICD Code bipolar disorder low blood pressure Surgical History Surgery Date(Month/Year) appendectomy 2022 gallbladder 2013
--- NOTE | 2025-01-20 04:49 | PC.NURSE ---
Pt presents to ED due to R knee injury, appears red bruised and swollen. Refer to MAR for medication administration
[2025-01-20] MEDS: HYDROcodone/acetaminophen (*CRX) 5-325 MG TABLET 1 TAB PO (04:50)
[2025-01-20 04:53] VITALS: BP 138/85; PULSE 94; RESP 16; O2SAT 98
--- OUTSIDE RECORDS SUMMARY | 2025-01-20 05:00 | XMS_ITS | Clinical Summary ---
Author Organization [facility] Address [address] [place] [address] Care Team Providers Care Radial Drill Operator Name Role Phone Diamond Sanchez MD Primary Care Provider [phone] Allergies Active Allergy Reactions Criticality Noted Date [...] 02/28/2022 COPD (chronic obstructive pu lmonary disease) ([facility]) Asthma ([facility]) Moderate episode of recurrent major depressive d isorder Seizure-like activity ([facility]) Concussion with loss of consciousness Generalized anxiety disorder Bipolar 1 disorder ([facility]) Hypotension Family History Medical History [...] Comments Blood Pressure 136/70 08/15/2023 12:20 PM FITNESS TECHNICIAN Pulse 94 08/15/2023 12:20 PM FITNESS TECHNICIAN Temperature 36.7 C (98.1 F) 07/03/2023 11:17 AM CDT Respiratory Rate 16 07/03/2023 11:17 AM CDT Oxygen Saturation 98% 08/15/2023 12:20 PM FITNESS TECHNICIAN Inhaled Oxygen Concentration - - Weight 68 kg (150 lb) 08/15/2023 12:20 PM FITNESS TECHNICIAN Height 162.6 cm (5' 4 ) 08/15/2023 12:20 PM FITNESS TECHNICIAN Body Mass Index 25.75 08/15/2023 12:20 PM FITNESS TECHNICIAN Plan of Treatment Health Maintenance Due Date [...] 2024 Annual Physical 07/03/2024 07/03/2023 PHQ-2 (Physician [place]) 09/04/2024 07/03/2023 Cervical Cancer Screening Pa p [...] ) NON-REACTI VE 02/28/2022 3:[address] [facility] Comment: NOTE: A POSITIVE RESULT WILL BE CONFIRMED BY THE HEP C RNA, QUANT, PCR TEST. 02/28/2022 12:3 1 PM CDT us Maverick Cabrera DO LABORATORY Final Result [facility] [address] [place] [address], [place] [phone] from Last 3 Months or Most Recently Relevant to Health Maintenance Insurance [employer] Care Teams Radial Drill Operator Relationship Specialty Start Date End Date Diamond Sanchez MD [address] [place] [address] PCP - General FAMILY PRACTICE 09/30/22
--- OUTSIDE RECORDS SUMMARY | 2025-01-20 05:00 | XMS_ITS | Continuity of Care Document ---
Author Organization [facility] Address [address] [place] [address] [place] [address] Phone Care Team Providers Care Apprentice Embalmer Name Role Phone Henrry Manning MD Unavailable [...] Providers Copied on Encounter OFFICE/OUTPA TIENT VISIT, [facility], [address] [place], [place], [address], tel:[phone] [facility] HLP (chief complaint) A1c (chief complaint) LBP (chief complaint) anxiety1 (chief complaint) HyperlipidemiaHyper glycemiaLow back painGeneralized anxiety disorder 6-201 6 Nigel [address]. [address] [place], [address] , [place]. tel:[phone] Referring Provider: Henrry Manning [address], [place], [address]. tel:[phone] OFFICE/OUTPA TIENT VISIT, [facility], [address] [place], [address], tel:[phone] [facility] anxiety1 (chief complaint) back pain1 (chief complaint) HLP (chief complaint) sick (chief complaint) Mixed hyperlipidemiaHyper glycemiaLow back painGeneralized Anxiety Disorder 6 Nigel Sales. [address], [place], [place], [address] , [place]. tel:[phone] Referring Provider: Dionne [address], [place], [place], [address]. tel:[phone] OFFICE/OUTPA TIENT VISIT, EST [facility], [address], [place], [place], [address], [place] tel:[phone] [facility] back pain1 (chief complaint) anxiety1 (chief complaint) hot flush (chief complaint) Menopausal disorderLow back painGeneralized anxiety disorder 6 Nigel Sales. [address], [place], [place], [address] , [place]. [phone] Referring Provider: Dionne Cotton [address], [place], [place], [address]. tel:[phone] PREV VISIT, EST, AGE 40-64 [facility], [address], [place], [place], [address], [place] tel:[phone] [facility] PHysical (chief complaint) Encounter for general adult medical exam w abnormal findingsGeneralized anxiety disorderMixed hyperlipidemiaHyper glycemia 6 Nigel Sales. [address], [place], [place], [address] , [place]. tel:[phone] Referring Provider: Dionne Cotton [address], [place], [place], [address]. tel:[phone] OFFICE/OUTPA TIENT VISIT, EST [facility], [address], [place], [place], [address], [place] tel:[phone] [facility] back pain1 (chief complaint) anxiety1 (chief complaint) Chronic pain syndromeGeneralized anxiety disorder 6 Nigel Sales. [address], [place], [place], [address] , [place]. tel:[phone] Referring Provider: Dionne [address], [place], [place], [address]. tel:[phone] OFFICE/OUTPA TIENT VISIT, [facility], [address], [place], [place], [address], [place] tel:[phone] [facility] glucose (chief complaint) HLP (chief complaint) hematuria (chief complaint) bakc pain1 (chief complaint) anxiety1 (chief complaint) Mixed hyperlipidemiaHyper glycemiaHematuriaCh ronic pain syndrome 6 Nigel Sales. [address], [place], [place], [address] , [place]. tel:[phone] Referring Provider: Dionne [address], [place], [place], [address]. tel:[phone] OFFICE/OUTPA TIENT VISIT, [facility], [address], [place], [place], [address], [place] tel:[phone] [facility] back pain1 (chief complaint) anxiety1 (chief complaint) Chronic pain syndromeGeneralized Anxiety Disorder 6 Nigel Sales. [address], [place], [place], [address] , [place]. tel:[phone] Referring Provider: Dionne [address], [place], [place], [address]. tel:[phone] OFFICE/OUTPA TIENT VISIT, [facility], [address], [place], [place], [address], [place] tel:[phone] [facility] back pain1 (chief complaint) anxiety1 (chief complaint) Chronic pain syndromeGeneralized Anxiety Disorder 5 Nigel Sales. [address], [place], [place], [address] , [place]. tel:[phone] Referring Provider: Dionne [address], [place], [place], [address]. tel:[phone] OFFICE/OUTPA TIENT VISIT, [facility], [address], [place], [place], [address], [place] tel:[phone] [facility] back pain1 (chief complaint) anxiety1 (chief complaint) HLP1 (chief complaint) vasomotor symptoms (chief complaint) Other spondylosis, lumbar regionGeneralized anxiety disorderMixed hyperlipidemiaPerim enopausal disorder 5 Nigel Sales. [address], [place], [place], [address] , [place]. tel:[phone] Referring Provider: Dionne [address], [place], [place], [address]. tel:[phone] OFFICE/OUTPA TIENT VISIT, [facility], [address], [place], [place], [address], [place] tel:[phone] [facility] anxiety (chief complaint) Anxiety (chief complaint) back pain (chief complaint) Back pain (chief complaint) LumbagoDepressive disorder, not elsewhere classified 5 Nigel Sales. [address], [place], [place], [address] , [place]. tel:[phone] Referring Provider: Dionne Cotton [address], [place], [place], [address]. tel:[phone] OFFICE/OUTPA TIENT VISIT, [facility], [address], [place], [address], [place] tel:[phone] [facility] weight gain (chief complaint) Anxiety (chief complaint) back pain (chief complaint) Abnormal weight gainLumbagoGenerali zed Anxiety Disorder 5 Nigel Sales. [address], [place], [place], [address] , [place]. tel:[phone] Referring Provider: Dionne Cotton [address], [place], [place], [address]. tel:[phone] OFFICE/OUTPA TIENT VISIT, [facility], [address], [place], [place], [address], [place] tel:[phone] [facility] right shoulder pain (chief complaint) back pain (chief complaint) HTN (chief complaint) Anxiety (chief complaint) Blood pressure elevatedShoulder painLumbagoGenerali zed anxiety disorder 5 Nigel Sales. [address], [place], [place], [address] , [place]. [phone] Referring Provider: Dionne [address], [place], [place], [address]. tel:[phone] OFFICE/OUTPA TIENT VISIT, [facility], [address], [place], [place], [address], [place] tel:[phone] [facility] axiety (chief complaint) back pain (chief complaint) LumbagoGeneralized anxiety disorder 5 Nigel Sales. [address], [place], [place], [address] , [place]. [phone] Referring Provider: Dionne [address], [place], [place], [address]. tel:[phone] OFFICE/OUTPA TIENT VISIT, [facility], [address], [place], [place], [address], [place] tel:[phone] [facility] anxiety (chief complaint) back pain (chief complaint) abrasion (chief complaint) Abrasion or friction burn of other, multiple, and unspecified sites, without mention of infectionGeneralize d anxiety disorderLumbagoOpio id type dependence, unspecified use 5 Nigel Hernandez [address], [place], [place], [address] , [place]. [phone] Referring Provider: Dionne [address], [place], [place], [address]. tel:[phone] PREV VISIT, EST, AGE 40-64 [facility], [address], [place], [place], [address], [place] tel:[phone] [facility] PHysical (chief complaint) Routine Medical ExamOther and unspecified diseases of upper respiratory tractLumbagoGeneral ized anxiety disorderRoutine Medical Exam 5 Nigel Sales. [address], [place], [place], [address] , [place]. tel:[phone] Referring Provider: Dionne [address], [place], [place], [address]. tel:[phone] OFFICE/OUTPA TIENT VISIT, [facility], [address], [place], [place], [address], [place] tel:[phone] [facility] back pain (chief complaint) Anxiety (chief complaint) cough (chief complaint) LumbagoBronchitis, AcuteGeneralized anxiety disorderTobacco Abuse 5 Nigel Sales. [address], [place], [place], [address] , [place]. [phone] Referring Provider: Dionne Cotton [address], [place], [place], [address]. tel:[phone] OFFICE/OUTPA TIENT VISIT, [facility], [address], [place], [place], [address], [place] tel:[phone] [facility] back pain (chief complaint) hematuria (chief complaint) anxiety (chief complaint) cold symptoms (chief complaint) Bronchitis, AcuteHEMATURIA NOSGeneralized anxiety disorderLumbago 5 Nigel Sales. [address], [place], [place], [address] , [place]. [phone] Referring Provider: Dionne [address], [place], [address]. tel:[phone] OFFICE/OUTPA TIENT VISIT, [facility], [address], [place], [place], [address], [place] tel:[phone] [facility] back pain (chief complaint) anxiety (chief complaint) LumbagoGeneralized anxiety disorder 4 Nigel Sales. [address], [place], [place], [address] , [place]. tel:[phone] Referring Provider: Dionne [address], [place], [place], [address]. tel:[phone] OFFICE/OUTPA TIENT VISIT, [facility], [address], [place], [address], [place] [phone] [facility] hematuria (chief complaint) lumbago (chief complaint) Anxiety (chief complaint) HLP (chief complaint) HEMATURIA NOSLumbagoOther and unspecified hyperlipidemiaGener alized anxiety disorder 4 Nigel Sales. [address], [place], [address] , [place]. [phone] Referring Provider: Henrry Manning, [address], [place], [place], [address]. tel:[phone] OFFICE/OUTPA TIENT VISIT, [facility], [address], [place], [place], [address], [place] [phone] [facility] UTI (chief complaint) HLP (chief complaint) back pain (chief complaint) anxiety (chief complaint) Urinary Tract InfectionOther and unspecified hyperlipidemiaLumba goGeneralized anxiety disorder 0 4 Nigel Sales. [address], [place], [place], [address] , [place]. tel:[phone] Referring Provider: Henrry Manning [address], [place], [place], [address]. tel:[phone] OFFICE/OUTPA TIENT VISIT, [facility], [address], [place], [place], [address], [place] tel:[phone] [facility] back pain (chief complaint) anxiety (chief complaint) bruise (chief complaint) Spontaneous ecchymosesLumbagoGe neralized anxiety disorder 4 Nigel Sales. [address], [place], [place], [address] , [place]. [phone] Referring Provider: Henrry Manning [address], [place], [place], [address]. tel:[phone] OFFICE/OUTPA TIENT VISIT, [facility], [address], [place], [place], [address], [place] tel:[phone] [facility] back pain (chief complaint) anxiety (chief complaint) Weight issue (chief complaint) hematuria (chief complaint) HEMATURIA NOSGeneralized anxiety disorderLumbago 4 Nigel Sales. [address], [place], [place], [address] , [place]. [phone] Referring Provider: Henrry Manning, [address], [place], [place], [address]. tel:[phone] OFFICE/OUTPA TIENT VISIT, [facility], [address], [place], [place], [address], [place] tel:[phone] [facility] weight loss (chief complaint) back pain (chief complaint) anxiety (chief complaint) lip sore (chief complaint) Loss of weightLumbagoGenera lized anxiety disorderHerpes simplex with other specified complications 4 Nigel Sales. [address], [place], [place], [address] , [place]. [phone] Referring Provider: Dionne Cotton [address], [place], [place], [address]. tel:[phone] OFFICE/OUTPA TIENT VISIT, [facility], [address], [place], [place], [address], [place] [phone] [facility] back pain (chief complaint) insomnia (chief complaint) anxiety (chief complaint) Insomnia, OtherDepressionLumb agoGeneralized anxiety disorder 4 Nigel Sales. [address], [place], [place], [address] , [place]. [phone] Referring Provider: Dionne Cotton [address], [place], [place], [address]. tel:[phone] OFFICE/OUTPA TIENT VISIT, [facility], [address], [place], [place], [address], [place] tel:[phone] [facility] cough (chief complaint) back pain (chief complaint) Chest Pain, UnspecifiedBronchit is, AcuteLumbago 4 Nigel Sales. [address], [place], [place], [address] , [place]. [phone] Referring Provider: Dionne Cotton [address], [place], [place], [address]. tel:[phone] OFFICE/OUTPA TIENT VISIT, [facility], [address], [place], [place], [address], [place] tel:[phone] [facility] back pain (chief complaint) anxiety (chief complaint) Insomnia (chief complaint) Insomnia, OtherLumbagoGeneral ized anxiety disorder 4 Nigel Hernandez [address], [place], [place], [address] , [place]. [phone] Referring Provider: Dionne Cotton [address], [place], [place], [address]. tel:[phone] PREV VISIT, EST, AGE 40-64 [facility], [address], [place], [place], [address], [place] tel:[phone] [facility] PHysical (chief complaint) Routine Medical ExamHEMATURIA NOSLumbagoGeneraliz ed anxiety disorderRoutine Medical Exam 4 Nigel Hernandez [address], [place], [address] , [place]. [phone] Referring Provider: Dionne Cotton [address], [place], [place], [address]. tel:[phone] OFFICE/OUTPA TIENT VISIT, EST [facility], [address], [place], [place], [address], [place] tel:[phone] [facility] abdominal pain (chief complaint) Abdominal PainHEMATURIA NOSAcute pyelonephritis without lesion of renal medullary necrosis 4 Nigel Hernandez [address], [place], [place], [address] , [place]. [phone] Referring Provider: Dionne Cotton [address], [place], [place], [address]. tel:[phone] OFFICE/OUTPA TIENT VISIT, [facility], [address], [place], [place], [address], [place] [phone] [facility] urinary straining (chief complaint) back pain (chief complaint) LumbagoAbdominal PainHEMATURIA NOS 4 Nigel Sales. [address], [place], [place], [address] , [place]. tel:[phone] Referring Provider: Dionne Cotton [address], [place], [place], [address]. tel:[phone] OFFICE/OUTPA TIENT VISIT, [facility], [address], [place], [place], [address], [place] tel:[phone] [facility] syncope (chief complaint) back pain (chief complaint) sore throat (chief complaint) anxiety (chief complaint) hematuria (chief complaint) Syncope and collapseLumbagoHEMA TURIA NOS 3 Nigel Sales. [address], [place], [place], [address] , [place]. tel:[phone] Referring Provider: Dionne Cotton [address], [place], [address]. tel:[phone] OFFICE/OUTPA TIENT VISIT, [facility], [address], [place], [place], [address], [place] tel:[phone] [facility] sepsis (chief complaint) back pain (chief complaint) edema (chief complaint) anxiety (chief complaint) Pyelonephritis, unspecifiedSepsisLu mbagoEdema 3 Nigel Sales. [address], [place], [place], [address] , [place]. [phone] Referring Provider: Dionne Cotton [address], [place], [place], [address]. tel:[phone] OFFICE/OUTPA TIENT VISIT, [facility], [address], [place], [place], [address], [place] tel:[phone] [facility] back pain (chief complaint) anxiety (chief complaint) LumbagoInsomnia, OtherGeneralized anxiety disorder 3 Nigel Sales. [address], [place], [place], [address] , [place]. tel:[phone] Referring Provider: Henrry Manning, [address], [place], [place], [address]. tel:[phone] OFFICE/OUTPA TIENT VISIT, [facility], [address], [place], [place], [address], [place] tel:[phone] [facility] back pain (chief complaint) cough (chief complaint) Acute upper respiratory infections of other multiple sitesAllergic rhinitis, cause unspecifiedLumbago 3 Nigel Sales. [address], [place], [place], [address] , [place]. tel:[phone] Referring Provider: Henrry Manning, [address], [place], [place], [address]. tel:[phone] OFFICE/OUTPA TIENT VISIT, [facility], [address], [place], [place], [address], [place] tel:[phone] [facility] back pain (chief complaint) Lumbago 3 Nigel Sales. [address], [place], [place], [address] , [place]. tel:[phone] Referring Provider: Henrry Manning, [address], [place], [place], [address]. tel:[phone] OFFICE/OUTPA TIENT VISIT, [facility], [address], [place], [place], [address], [place] tel:[phone] [facility] back pain (chief complaint) Lumbago 3 Nigel Sales. [address], [place], [place], [address] , [place]. tel:[phone] Referring Provider: Dionne Cotton [address], [place], [place], [address]. tel:[phone] OFFICE/OUTPA TIENT VISIT, [facility], [address], [place], [place], [address], [place] tel:[phone] [facility] LBP (chief complaint) Tick bite (chief complaint) LumbagoCellulitis and abscess of other specified sites 3 Nigel Sales. [address], [place], [address] , [place]. tel:[phone] Referring Provider: Dionne Cotton [address], [place], [place], [address]. tel:[phone] OFFICE/OUTPA TIENT VISIT, [facility], [address], [place], [place], [address], [place] tel:[phone] [facility] back pain (chief complaint) sinus (chief complaint) LumbagoPain in joint involving lower legAcute maxillary sinusitis 3 Nigel Sales. [address], [place], [place], [address] , [place]. [phone] Referring Provider: Dionne Cotton [address], [place], [place], [address]. tel:[phone] OFFICE/OUTPA TIENT VISIT, [facility], [address], [place], [place], [address], [place] tel:[phone] [facility] back pain (chief complaint) knee pain (chief complaint) insomnia (chief complaint) LumbagoPain in joint involving lower legInsomnia, Other 3 Nigel Sales. [address], [place], [place], [address] , [place]. tel:[phone] Referring Provider: Dionne Cotton [address], [place], [place], [address]. tel:[phone] OFFICE/OUTPA TIENT VISIT, [facility], [address], [place], [place], [address], [place] tel:[phone] [facility] back pain (chief complaint) KNee pain (chief complaint) HLP (chief complaint) LumbagoRespiratory abnormality, unspecifiedOther and unspecified hyperlipidemiaUnspe cified vitamin d deficiency Dec- 3 Nigel Sales. [address], [place], [address] , [place]. [phone] Referring Provider: Henrry Manning, [address], [place], [place], [address]. tel:[phone] OFFICE/OUTPA TIENT VISIT, [facility], [address], [place], [place], [address], [place] tel:[phone] [facility] back pain (chief complaint) SOB (chief complaint) Insomnia (chief complaint) LumbagoRespiratory abnormality, unspecifiedInsomnia , Other Mar-2 3 Nigel Sales. [address], [place], [place], [address] , [place]. tel:[phone] Referring Provider: Dionne Cotton [address], [place], [place], [address]. tel:[phone] OFFICE/OUTPA TIENT VISIT, [facility], [address], [place], [place], [address], [place] tel:[phone] [facility] back pain (chief complaint) Insomnia (chief complaint) COPD (chief complaint) Respiratory abnormality, unspecifiedInsomnia , OtherLumbago Feb-0 3 Nigel Sales. [address], [place], [place], [address] , [place]. tel:[phone] Referring Provider: Dionne Cotton [address], [place], [place], [address]. tel:[phone] PREV VISIT, NEW, AGE 40-64 [facility], [address], [place], [place], [address], [place] tel:[phone] [facility] Physical (chief complaint) COPD (chief complaint) Routine Medical ExamLumbagoCOPDRbay harbor hospital Medical Exam 3 Nigel Sales. [address], [place], [place], [address] , [place]. [phone] Referring Provider: Henrry Manning, [address], [place], [place], [address]. tel:[phone] Family History Family Member Type Diagnosis Age At Onset Brother Problem (finding) Alive and well Father Problem (finding) Cancer - abdominal Mother Problem (finding) Cancer, lung Payers Payer name Insurance type Covered constitution party ID Authoriza tion(s) No Information Social History [...] Goal Colonoscopy. Due on 016 due Goal Sigmoidoscopy. Due on due Goal Influenza vaccine. Due on due Goal Colonoscopy. Due on due Goal Depression screening. Due on due Goal Pap/HPV testing. Due on due Goal Tdap. Due on due Goal Td vaccine. Due on 16 due Goal FOBT. Due on due Goal Td vaccine. Due [...] Goal Pap/HPV testing. Due on due Goal Pap/HPV testing. Due [...] due Goal Tdap. Due on due Goal Mammogram. Due on [...] h aving hot flashs and some diffuse [id number]|2025-01-20 05:02:00|2025-01-20 05:02:00|ED_ITS|HWANGV|Health Information Management|[id number]|"HPI - Extremity Injury (Lower) General Chief Complaint: [...] azithromycin Allergy Unknown Other Verified 01/20/25 03:44 SPANISH GINSENG Allergy Unknown Other Uncoded 01/20/25 03:44 GUARANA SEED EXTRACT Allergy Unknown Other Uncoded 01/20/25 03:44 TAMAZIGHT GINSENG Allergy Unknown Other Uncoded 01/20/25 03:44 [...] move her knee with good pulses. Given Mcdaniels for pain, knee x-ray obtained on my [...] any further or worsening issues. Patient Language: Nicaraguan Prescriptions: New prednisone 20 mg tablet 40 [...] - Marshall Wasserman MD [Physician] - 2 Days "
[2025-01-20] MEDS: TETANUS,DIPHTHERIA,AC PERTUSSIS ADULT (0.5 ML) BOOSTRIX IM (05:14)
== END 2025-01-20 05:33 | disposition home or self-care (01) ==
PROVIDERS: Emergency Provider Emergency Medicine; PCP Internal Medicine
DX: M70.41 Prepatellar bursitis, right knee (principal); Z23 Encounter for immunization; J44.9 Chronic obstructive pulmonary disease, unspecified; K58.9 Irritable bowel syndrome, unspecified; F17.210 Nicotine dependence, cigarettes, uncomplicated; Z90.49 Acquired absence of other specified parts of digestive tract; W01.0XXA Fall on same level from slipping, tripping and stumbling without subsequent striking against object, initial encounter
CPT/HCPCS: 73562; 90471; 90715; 99283; A9270